=== PATIENT | female | born 1950 | race African-American/Black ===

== ENCOUNTER → 2017-03-18 06:04 | Outpatient (CLI) | payer OTHER, MEDICARE, SELFPAY ==
--- NOTE | 2017-03-18 | NM_ITS ---
CARDIOLITE SPECT MYOCARDIAL PERFUSION SCAN, REST AND STRESS: EXERCISE STRESS [facility] REVIEW QGS EF AND WALL MOTION EVALUATION: QPS - PERFUSION EVALUATION HISTORY: Chest pain DOSE: 10.17 mCi technetium 99m mibi intravenously at rest followed by 31.0 mCi technetium 99m mibi following the intravenous ministration of 0.4 mg of Lexiscan. Resting blood pressure is 152/81. Stress blood pressure 157/76. FINDINGS: Ejection fraction is calculated to be 74%. Stress images reveal decreased activity in the anterior apical wall rest images reveal uniform myocardial IMPRESSION: Anterior ischemia with normal ejection fraction normal wall motion. This is a high risk abnormal stress test
--- NOTE | 2017-03-18 06:57 | HMH.ITSHM ---
Potassium Metformin Diltiazem Hydrochlorothiazide Onqlyza Flucona Levothyroxine Jardiance Zolpidem Sertraline Metoprolol
== END ==
PROVIDERS: Family Provider Family Medicine; PCP Family Medicine; Visit Provider Family Medicine
DX: I20.9 Angina pectoris, unspecified (principal); E11.9 Type 2 diabetes mellitus without complications
CPT/HCPCS: 78452; 93017; A9502; J2785

== ENCOUNTER 2017-03-25 08:20 | Day surgery (SDC) | payer OTHER, MEDICARE, SELFPAY ==
[2017-03-25] VITALS (28 sets, daily range): BP systolic 122–157; BP diastolic 69–88; PULSE 1–102; RESP 16–20; TEMP 36.4–36.6; O2SAT 94–97; BMI 25.4
--- NOTE | 2017-03-25 08:18 | IR_ITS ---
CARDIAC CATHETERIZATION DATE OF CATHETERIZATION:03/25/2017 10:17 AM PROCEDURES: 1. Left heart catheterization 2. Left ventriculogram 3. Selective coronary angiogram INDICATION FOR TEST: 1. Abnormal Myoview 2. Risk factors for coronary artery disease 3. Angina pectoris Informed consent was obtained prior to the procedure. COMPLICATIONS: None ESTIMATED BLOOD LOSS: Less than 10 ml. TECHNIQUE: One percent lidocaine used to anesthetize the right anterior aspect of the wrist. The right radial artery was accessed via the Seldinger technique. A 6 Citizen [place] sheath was placed in the right radial artery. 2.5 mg of verapamil, 800 mcg of nitroglycerin and 5000 U Heparin were given through the arterial sheath. Due to extreme tortuosity at the elbow it was decided to abandon the radial approach therefore one percent lidocaine was used to anesthetize the right groin. The right femoral artery was accessed via a centimeter technique and a 4 [place] sheath was placed in the right femoral artery. A JL 4 JR4 catheter were used to perform left heart catheterization left ventriculogram and selective coronary angiography. At the end of the procedure the patient was transferred to the postop holding area in stable condition for sheath removal ANGIOGRAPHIC RESULTS: 1. The left main artery normal 2. The left anterior descending artery has proximal mild luminal irregularities and mid vessel mild luminal irregularities less than 10% in severity 3. The circumflex artery is dominant with mild luminal irregularities less than 10% 4. The right coronary artery nondominant normal 5. The ANDERSON ventriculogram reveals 65% 6. The left ventricular end-diastolic pressure elevated at 25 mmHg IMPRESSION: 1. Mild nonflow limiting luminal irregularities 2. Normal ejection fraction 3. Moderately elevated LVEDP consistent with hypertensive heart disease PLAN: 1. Treatment of hypertensive heart disease and diastolic dysfunction. 2. Patient would likely benefit from low dose diuretics in order to decrease EDP
--- NOTE | 2017-03-25 08:28 | CA_ITS ---
PROCEDURE: 2-D M-mode and color Doppler study INDICATIONS FOR THE TEST: Chest pain+ COPD Heart Murmur Tobacco SmokingEX Palpitations Fatigue Syncope Edema Hypertension+Diabetes Mellitus+ Rheumatic Fever SOB [place]+Obesity Hyperlipidemia Family History HD+ Additional History Heart cath today PATIENT INFORMATION HEIGHT: 65 WEIGHT: 158 GENDER: Female B/P: 136/69 2-D/M-MODE INTERPRETATION: 2-D MEASUREMENTS OBSERVED VALUES IN CMS Right Ventricular Dimension (RVDd) 2.0 Interventricular Septum (Thickness)(IVsd) 1.1 Left Ventricular Internal Dimensions(LVIDd) 3.0 Left Ventricular Posterior Wall (Thickness)(LVPWd) 1.0 Aortic Root 2.5 Aortic Cusp Separation 1.8 Left Atrial Dimensions (LAD) 3.5 2D 1. Left atrium is normal size, left ventricle is normal size, there is no concentric left ventricular hypertrophy, visually estimated ejection fraction of 55-60% with no obvious regional wall motion abnormality. 2. The right atrium and right ventricle are normal size and contractility. 3. The aortic valve is minimally thickened and fibrosed. 4. The mitral and tricuspid valve are structurally normal. 5. The pulmonic valve is poorly visualized. 6. No significant pericardial effusion noted. DOPPLER INTERROGATION: Doppler interrogation of the aortic, mitral and tricuspid valvular presence of mild mitral and tricuspid regurgitation, tricuspid and jet velocity insufficient for calculation of the right ventricular systolic pressure, grade 1 diastolic dysfunction seen without tissue Doppler evidence of raised left atrial pressure. CONCLUSION: 1. Mildly enlarged left atrium, normal left ventricular size, there is no concentric left ventricular hypertrophy, visually estimated ejection fraction 55-60% with no obvious regional wall motion abnormality, grade 1 diastolic dysfunction seen without tissue Doppler evidence of raised left atrial pressure. 2. Mild mitral and tricuspid regurgitation. 3. No significant pericardial effusion noted.
[2017-03-25 08:49] LABS: Basophils # 0.1 K/mm3 (0-0.2); Basophils % 0.6 % (0.1-2.0); Eosinophils # 0.4 K/mm3 (0.0-0.4); Eosinophils % 3.1 % (0.1-12.0); Hematocrit 44.3 % (37.0-47.0); Hemoglobin 14.4 g/dL (12.2-16.2); Lymphocytes # 3.9 K/mm3 (0.7-4.5); Lymphocytes % 30.7 K/mm3 (10-50); Mean Corpuscular HGB Conc 32.5 g/dL (31.8-35.4); Mean Corpuscular Hemoglobin 29.2 pg (27.0-31.2); Mean Corpuscular Volume 89.9 fl (81-99); Mean Platelet Volume 7.4 fl (7.4-10.4); Monocytes # 0.5 K/mm3 (0.1-1.0); Monocytes % 4.3 % (1.7-9.3); Neutrophils # 7.7 K/mm3 (1.8-7.8); Neutrophils % 61.4 % (37.0-80.0); Platelet Count 244 K/mm3 (142-424); Red Blood Count 4.93 M/mm3 (4.20-5.40); Red Cell Distribution Width 12.9 % (11.5-17.5); White Blood Count 12.6 K/mm3 (4.8-10.8)
[2017-03-25 08:57] LABS: Anion Gap 12.2 mEq/L (5-15); Blood Urea Nitrogen 16 mg/dL (7-18); Carbon Dioxide 28 mmol/L (21.0-32.0); Chloride 103 mmol/L (98-107); Creatinine Clearance Estimated 63 mL/min (0-300); Creatinine,Serum 0.66 mg/dL (0.55-1.02); Estimated Glomerular Filt Rate 90 ml/min (>60); GFR (African American) 108 ML/MIN (>60); Glucose 118 mg/dL (74-106); Potassium 4.2 mmoL/L (3.5-5.1); Sodium 139 mmol/L (136-145)
[2017-03-25 13:45] LABS: CATHL Activated Clotting Time 149 SEC (74-125)
[2017-03-25 13:45] LABS: CATHL Activated Clotting Time 206 SEC (74-125)
== END 2017-03-25 14:39 | disposition home or self-care (01) ==
PROVIDERS: Family Provider Family Medicine; PCP Family Medicine; Visit Provider Internal Medicine
DX: R93.1 Abnormal findings on diagnostic imaging of heart and coronary circulation (principal); I20.9 Angina pectoris, unspecified; I11.0 Hypertensive heart disease with heart failure; I50.30 Unspecified diastolic (congestive) heart failure; Z72.0 Tobacco use; E11.9 Type 2 diabetes mellitus without complications
CPT/HCPCS: 80048; 85025; 85347; 93306; 93458; 99152; C1725; C1769; J1644; J2720; Q9967

== ENCOUNTER 2017-04-01 10:47 | Day surgery (SDC) | payer OTHER, MEDICARE, SELFPAY ==
[2017-04-01] VITALS (7 sets, daily range): BP systolic 121–155; BP diastolic 61–91; PULSE 66–83; RESP 18–20; TEMP 36.8; O2SAT 18–98; BMI 26.2
--- NOTE | 2017-04-01 11:33 | HMH.ANESCL ---
[facility] Anesthesia Checklist - Patient Identification Patient Identification: Arm Band, Verbal (Name & ) - Structural Data Admitted From: Home Planned Operative Procedure/s: egd Consent for Planned Operative Procedure(s) Verified: Yes Verified Documents: Surgical Consent, History and Physical - NPO Status Verified Time NPO: 00:00 - Chart Verification Results Verified: CBC, BMP - Additional verifications Patient : No Anesthesia Reactions: No Hx Blood Transfusions: No Blood Transfusion Reaction: No Cephalosporin Allergy: No Previous Colonoscopy: Yes - Cardiovascular Assessment Heart Sounds: S1 & S2 Pulse Strength: Strong Pulse Rhythm: Regular Peripheral Edema: No - Airway Assessment C-Spine Mobility Assessed: Yes TMJ Mobility Assessed: Yes Dentition: Dentures-good fit - Neurological Assessment Level of Consciousness: Awake, Alert, Appropriate Hx Seizures: No Numbness or tingling in extremities: No - Genitourinary Assessment Voided care transition coordinator to O.R.: Yes - Anesthesia Plan Anesthesia Risk discussed: Yes Anesthesia Plan: Verified ASA Class: III Anesthesia Type: MAC [facility] Anesthesia HX I have reviewed the patient's past medical history: Yes Medical History: Reports:: Diabetes Mellitus Type 2, Gastroesophageal Reflux Disease(GERD), Hypertension Denies:: Internal Pacemaker, Seizures Other Medical History: Reports: Hypothyroidism Laterality Cases: Bilateral: Breast Biopsy Other Surgeries: Yes: Appendectomy, Colon Resection, Hysterectomy-Total, Thyroidectomy, Other. No: Pacemaker Amputation: No Fractures: No *Family Hx:: Cancer, Stroke
[2017-04-01 11:44] LABS: POC Glucose,Bedside 93 mg/dL
--- NOTE | 2017-04-01 12:17 | HMH.PROC ---
[facility] Procedure Note Procedure Note:: Upper Endoscopy Procedure Report: Esophagogastroduodenoscopy with cold biopsies and TTS balloon dilation Endoscopost: Josiah Gilbert II, MD Referring Physician: Manan Todd MD Date of Procedure: April 01, 2017 Equipment: Olympus GIF 180 standard upper endoscope Sedation: MAC sedation Indications: Mrs. Lu is a 66-year-old female with noncardiac chest pain. She did have a cardiac catheterization (Dr. Maurizio Monahan M.D.) recently that showed 10% stenosis/noncritical and her chest pain was deemed to be noncardiac. This will radiate into her arms and jaw. She does have moderate belching and some bloating. Her chest pain can radiate into the back. She did have a partial thyroidectomy previously and reports some globus sensation and dysphagia. She has frequent clearance of the throat. She reports no recent heartburn or reflux but previously was on Nexium. She does have a history of Crohn's disease and had been followed by Dr. Jesenia Lee M.D. and her last colonoscopy was 4 years ago. She does have some alternating constipation with diarrhea. Procedure: Prior to the procedure, a history and physical exam was performed, and patient's medications and allergies were reviewed. The risks, benefits and alternatives of the sedation and procedure were discussed with the patient. All questions were answered and informed consent was obtained. The patient was brought to the procedure room. Patient identification and proposed procedure were verified by the physician and the nurse. The patient was placed in a left lateral decubitus position and the scope was passed under direct vision. Throughout the procedure, the patient's blood pressure, pulse, and oxygen saturations were monitored continuously. The upper GI endoscopy was accomplished without difficulty. The patient tolerated the procedure well. Findings: The scope was passed directly into the upper esophagus and advanced to the third portion of the duodenum. The post bulbar duodenum and duodenal bulb were normal with normal mucosa and conniventes. The scope was withdrawn through a normal duodenal bulb and pylorus into the stomach. There was bile reflux with mild linear reactive gastritis of the antrum and body. The remainder of the antrum, body and fundus of the stomach were grossly normal. Upon retroflexion there was a small 2 cm hiatal hernia. 2 biopsies were taken in the antrum and along the lesser curvature for histology and/or CLOtest. The scope was then withdrawn into the esophagus. There was no evidence of reflux esophagitis. There was a distal ring/Schatzki's ring which was insignificant. There were tertiary contractions and evidence of mild to moderate esophageal dysmotility. The entire esophagus was dilated to 6 Upper Sor[place]/20 mm with a TTS hydrostatic balloon some resistance at the cricopharyngeus (cricopharyngeal/upper esophageal sphincter spasm). The remainder of the esophageal mucosa was normal. Impression: 1. 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 Nonerosive GERD with mild esophageal dysmotility and small sliding hiatal hernia 3. Bile reflux with linear reactive gastritis Plan: I would recommend dietary measures, fiber bowel regimen and promotility therapy. I will discuss the findings with the patient and family. I will follow up the biopsies. I do feel that her chest pain is functional GERD and esophageal dyskinesia/spasm.
--- NOTE | 2017-04-01 12:23 | P.PCN_ITS ---
[facility] Procedure Note Procedure Note:: Upper Endoscopy Procedure Report: Esophagogastroduodenoscopy with cold biopsies and TTS balloon dilation Endoscopost: Josiah Gilbert II, MD Referring Physician: Manan Todd MD Date of Procedure: April 01, 2017 Equipment: Olympus GIF 180 standard upper endoscope Sedation: MAC sedation Indications: Mrs. Lu is a 66-year-old female with noncardiac chest pain. She did have a cardiac catheterization (Dr. Maurizio Monahan M.D.) recently that showed 10% stenosis/noncritical and her chest pain was deemed to be noncardiac. This will radiate into her arms and jaw. She does have moderate belching and some bloating. Her chest pain can radiate into the back. She did have a partial thyroidectomy previously and reports some globus sensation and dysphagia. She has frequent clearance of the throat. She reports no recent heartburn or reflux but previously was on Nexium. She does have a history of Crohn's disease and had been followed by Dr. Jesenia Lee M.D. and her last colonoscopy was 4 years ago. She does have some alternating constipation with diarrhea. Procedure: Prior to the procedure, a history and physical exam was performed, and patient' s medications and allergies were reviewed. The risks, benefits and alternatives of the sedation and procedure were discussed with the patient. All questions were answered and informed consent was obtained. The patient was brought to the procedure room. Patient identification and proposed procedure were verified by the physician and the nurse. The patient was placed in a left lateral decubitus position and the scope was passed under direct vision. Throughout the procedure, the patient's blood pressure, pulse, and oxygen saturations were monitored continuously. The upper GI endoscopy was accomplished without difficulty. The patient tolerated the procedure well. Findings: The scope was passed directly into the upper esophagus and advanced to the third portion of the duodenum. The post bulbar duodenum and duodenal bulb were normal with normal mucosa and conniventes. The scope was withdrawn through a normal duodenal bulb and pylorus into the stomach. There was bile reflux with mild linear reactive gastritis of the antrum and body. The remainder of the antrum, body and fundus of the stomach were grossly normal. Upon retroflexion there was a small 2 cm hiatal hernia. 2 biopsies were taken in the antrum and along the lesser curvature for histology and/or CLOtest. The scope was then withdrawn into the esophagus. There was no evidence of reflux esophagitis. There was a distal ring/Schatzki's ring which was insignificant. There were tertiary contractions and evidence of mild to moderate esophageal dysmotility. The entire esophagus was dilated to 6 [place]/20 mm with a TTS hydrostatic balloon some resistance at the cricopharyngeus (cricopharyngeal/ upper esophageal sphincter spasm). The remainder of the esophageal mucosa was normal. Impression: 1. 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 Nonerosive GERD with mild esophageal dysmotility and small sliding hiatal hernia 3. Bile reflux with linear reactive gastritis Plan: I would recommend dietary measures, fiber bowel regimen and promotility therapy. I will discuss the findings with the patient and family. I will follow up the biopsies. I do feel that her chest pain is functional GERD and esophageal dyskinesia/spasm.
== END 2017-04-01 13:20 | disposition home or self-care (01) ==
LOC: OUTP 10:49
PROVIDERS: Family Provider Family Medicine; PCP Family Medicine; Visit Provider Internal Medicine Gastroenterology
PROC: 0DJ08ZZ Inspection of Upper Intestinal Tract, Via Natural or Artificial Opening Endoscopic (ICD-10-PCS; CPT 43235; principal; 2017-04-01 12:00)
DX: K22.4 Dyskinesia of esophagus (principal); K44.9 Diaphragmatic hernia without obstruction or gangrene; K21.9 Gastro-esophageal reflux disease without esophagitis; K29.70 Gastritis, unspecified, without bleeding
CPT/HCPCS: 43249; 43239; 82962

== ENCOUNTER → 2017-06-18 15:07 | Outpatient (CLI) | payer OTHER, MEDICARE, SELFPAY ==
--- NOTE | 2017-06-18 15:10 | CT_ITS ---
CT lung screening EXAM: CT LUNG LOW DOSE WO CONTRAST COMPARISON: 05/01/2013 HISTORY: 66-year-old the male with 75 pack-year smoking history, asymptomatic ITS.REASON: HX TOBACCO USE ORDERING PHYSICIAN: Carmen Todd MD PATIENT AGE: 66 years TECHNIQUE: The exam was performed on a GE Light Speed [address] scanner using 2.90 mGy CTDI. A low dose helical CT CHEST was performed on a multi-detector scanner. All CT scans at the facility use one or more dose reduction, viz: automated exposure control; ma/kV adjustment per patient size (including targeted exams where dose is matched to indication; i.e. head); or iterative reconstruction technique. The LDCT was performed in a facility that meets the criteria for the screening program. Data regarding this exam was submitted to ACR which is an approved registry. The order for this exam indicates that it came as a result of a lung cancer screening counseling shard decision-making visit that included all the elements required of such a visit including smoking cessation. The radiologist interpreting this exam meets the CMS criteria for the LDCT lung cancer screening program. The exam is reported using the Lung-RADS classification scale and reported to the ACR registry. NOTE: This study was performed for the specific purposes of lung cancer screening and is not an alternative to diagnostic chest CT. RADIATION DOSE: CTDI vol(CT dose Index-volume) = 2.90mG DLP (Dose Length Product) = 92.11 mGcm FINDINGS: 7 x 3 mm nodule is present along the right minor fissure unchanged. Previously noted additional 7 mm nodule in this area is less apparent. Calcified granuloma right lung base posteriorly. Fibrotic changes right lung base posteriorly. 3 mm nodule right middle lobe unchanged. Mildly prominent precarinal lymph node at 2 x 1.2 cm unchanged. Scattered small axillary nodes measuring up to 1.7 x 1 cm on the right slightly more prominent nonspecific. IMPRESSION: 1. Lung RADS Category: 2, benign 2. Other findings: Mild fibrotic change in the lung bases RECOMMENDATIONS: 12 month LDCT follow-up
--- NOTE | 2017-06-18 15:30 | MM_ITS ---
MM Dig screening mamm BI w/CAD CAD Screening COMPARISON: Digital mammograms 04/03/2011 INDICATION: There is no personal or family history of breast cancer. There has been previous biopsies on each breast. TECHNIQUE: Standard CC and MLO images were obtained. R2 CAD reviewed. FINDINGS: Scattered fibroglandular densities are seen in both breasts on a background of fatty breast parenchyma. There are few benign-appearing calcification in each breast. There is no suspicious lesion and there are no suspicious microcalcifications. IMPRESSION: Stable exam no suspicious lesion seen BI-RADS Category: 2 Benign Finding(s) RECOMMENDED FOLLOW-UP: 1YR - 1 YEAR FOLLOW-UP (A letter has been sent to the patient regarding results of the study.)
== END ==
PROVIDERS: Family Provider Family Medicine; PCP Family Medicine; Visit Provider Family Medicine
DX: Z12.31 Encounter for screening mammogram for malignant neoplasm of breast (principal); Z87.891 Personal history of nicotine dependence; Z12.2 Encounter for screening for malignant neoplasm of respiratory organs
CPT/HCPCS: 77067

== ENCOUNTER → 2017-06-24 08:48 | Outpatient (POV) | payer OTHER, MEDICARE, SELFPAY | PROVIDERS: Visit Provider Nurse Practitioner Acute Care | DX: Z00.00 Encounter for general adult medical examination without abnormal findings (principal) ==

== ENCOUNTER → 2017-08-12 17:29 | Outpatient (POV) | payer OTHER, MEDICARE, SELFPAY | PROVIDERS: Family Provider Family Medicine; PCP Family Medicine; Visit Provider Nurse Practitioner Acute Care | DX: Z00.00 Encounter for general adult medical examination without abnormal findings (principal) ==

== ENCOUNTER → 2017-10-22 09:14 | Outpatient (POV) | payer OTHER, MEDICARE, SELFPAY | PROVIDERS: Family Provider Family Medicine; PCP Family Medicine; Visit Provider Otolaryngology | DX: Z00.00 Encounter for general adult medical examination without abnormal findings (principal) ==

== ENCOUNTER → 2019-02-12 10:33 | Outpatient (CLI) | payer OTHER, MEDICARE, SELFPAY ==
--- NOTE | 2019-02-12 10:40 | XR_ITS ---
PROCEDURE: XR ABDOMEN MIN 2V CLINICAL INDICATION: EPIGASTRIC PAIN Epigastric pain COMPARISON: No exams were available for comparison FINDINGS: Nonspecific nonobstructive bowel gas pattern. No intestinal obstruction or free air. There are few air-fluid levels in the right mid abdominal region within nondistended bowel. No free air evident. Prior cholecystectomy. There are some degenerative changes in the lumbar spine. Small calcific density is present over the upper pole of the left kidney suggesting a small renal stone at 3 mm. IMPRESSION: The 1. Nonspecific bowel gas pattern with scattered air-fluid levels on the right with nondistended bowel which could be due to enteritis or ileus. 2. Possible left nephrolithiasis Dictated by: Dirk Rodriguez MD 02/12/2019 16:13 Electronically signed by Dirk Rodriguez MD in [place] 02/12/2019 16:13
== END ==
PROVIDERS: PCP Family Medicine; Visit Provider Physician Assistant
DX: R10.13 Epigastric pain (principal)
CPT/HCPCS: 74019

== ENCOUNTER → 2020-10-25 09:21 | Outpatient (CLI) | payer MEDICARE, SELFPAY ==
--- NOTE | 2020-10-25 09:26 | US_ITS ---
PROCEDURE: US KIDNEY CLINICAL INDICATION: LOW ABD PAIN COMPARISON: No exams were available for comparison FINDINGS: The right kidney is [id number]. No hydronephrosis, cortical thinning, or renal mass or perinephric fluid collection is evident. There is minimal ectasia of the right renal collecting system. The left kidney is [id number]. No hydronephrosis, cortical thinning, or renal mass or perinephric fluid collection is evident. 1 cm cyst is present along the lower pole. IMPRESSION: Minimal ectasia right renal collecting system nonspecific but could be related to recently passed stone. Dictated by: Dirk Rodriguez MD 10/25/2020 15:03 Dirk Rodriguez MD in [facility] 10/25/2020 15:03
--- NOTE | 2020-10-25 09:26 | US_ITS ---
PROCEDURE: US URINARY BLADDER CLINICAL INDICATION: LOW ABD PAIN COMPARISON: No exams were available for comparison FINDINGS: Full bladder volume is calculated at 185 mL. No obvious urinary bladder mass. Bilateral ureteral jets are noted. Post void volume is 23 mL. IMPRESSION: Mild postvoid residual urine Dictated by: Dirk Rodriguez MD 10/25/2020 15:04 Dirk Rodriguez MD in [facility] 10/25/2020 15:04
--- NOTE | 2020-10-25 10:08 | XR_ITS ---
PROCEDURE: XR LUMBAR SPINE MIN 4V CLINICAL INDICATION: LOWER ABD PAIN COMPARISON: CT ABDPELW CT ABD PELVIS WITH CONTRAST from 03/05/2012 FINDINGS: No acute fracture or dislocation is evident. There is 7 mm anterolisthesis of L4 on L5. Degenerative disc disease noted at T11-T12. There is severe facet hypertrophic change at L4-L5 and S1 with osteosclerosis of the facets. There are osteoarthritic changes of the SI joints on both sides inferiorly Other findings:A 3 mm calcific density overlies the upper pole of the left kidney suggesting left nephrolithiasis IMPRESSION: Degenerative changes as described above with facet arthritic/hypertrophic changes at L4-L5 and S1 along with osteoarthritis of the SI joints. Possible left nephrolithiasis. Dictated by: Dirk Rodriguez MD 10/25/2020 14:07 Dirk Rodriguez MD in [facility] 10/25/2020 14:07
== END ==
PROVIDERS: PCP Family Medicine; Visit Provider Family Medicine
DX: R10.30 Lower abdominal pain, unspecified (principal)
CPT/HCPCS: 72110; 76770; 76857

== ENCOUNTER 2020-11-03 12:31 | Emergency (ER) | payer MEDICARE, SELFPAY ==
[2020-11-03] VITALS (10 sets, daily range): BP systolic 122–149; BP diastolic 65–84; PULSE 62–74; RESP 15–18; TEMP 36.8–37.1; O2SAT 95–100; BMI 27.1
--- NOTE | 2020-11-03 12:39 | ECG_ITS ---
APPROVED REPORT Exam: Resting ECG HR:67 bpm ECG Measurements Heart Rate 67 AXES OK 206 P 53 QRSd 76 QRS -18 QT 420 T 40 QTc 443 Conclusion Normal sinus rhythm Low voltage QRS Cannot rule out Anterior infarct, age undetermined Abnormal ECG Electronically signed by : Antoni Olivier MD 11/07/2020 21:05:36
--- NOTE | 2020-11-03 13:01 | CT_ITS ---
PROCEDURE: CT ABDOMEN PELVIS W CON CLINICAL INDICATION: LUQ pain that radiates to her left upper back COMPARISON: CT ABDPELW CT ABD PELVIS WITH CONTRAST from 03/05/2012 TECHNIQUE: IV Contrast: 75ML Isovue 370 Oral Contrast None Axial images obtained with sagittal and coronal reformats. All CT scans at the facility use one or more dose reduction, viz: automated exposure control, ma/kV adjustment per patient size (including targeted exams where dose is matched to indication, i.e. head), or iterative reconstruction technique. FINDINGS: Fatty liver. Prior cholecystectomy. 11 mm left adrenal nodule only slightly more prominent and may be due to an adenoma. Follow-up may confirm stability. Prior cholecystectomy with mild prominence of the cystic duct remnant and mild prominence of the common hepatic duct. No acute renal findings. The spleen, pancreas, have an unremarkable appearance. No evidence of appendicitis or diverticulitis. There are scattered fluid-filled loops of large and small bowel with air-fluid levels. There is eventration of the abdominal wall at the umbilical region with suggestion of a small left para milk a hernia containing a knuckle of small bowel. No evidence of bowel obstruction. Prior hysterectomy. IMPRESSION: Scattered nondistended loops of small and large bowel with air-fluid levels which may be due to enterocolitis or diarrhea disease. Eventration of the abdominal wall at the umbilical area with small left periumbilical hernia containing a knuckle of small bowel without obstruction. Other nonacute findings as described above. Dictated by: Dirk Rodriguez MD 11/03/2020 15:13 Dirk Rodriguez MD in [facility] 11/03/2020 15:13
--- NOTE | 2020-11-03 13:01 | XR_ITS ---
PROCEDURE: XR CHEST 2V CLINICAL HISTORY: left rib pain COMPARISON: CT CHW CT CHEST W/ CONTRAST from 05/01/2013 CR CXR CHEST(2 VIEWS-NOT PORTABLE) from 11/30/2013 CR XR CHEST 2V from 10/29/2018 FINDINGS: The cardiomediastinal silhouette and pulmonary vascularity are within normal limits. The lungs are clear without infiltrates, suspicious nodules, or pleural effusions. No acute bony abnormalities. IMPRESSION: No acute findings. Dictated by: Dirk Rodriguez MD 11/03/2020 14:58 Dirk Rodriguez MD in [facility] 11/03/2020 14:58
--- NOTE | 2020-11-03 13:12 | HMH.EDGENADL ---
ED Disposition Clinical Impression: Left flank pain, Left lower quadrant pain, Pleuritic chest pain Umbilical hernia Qualifiers: Obstruction and gangrene presence: without obstruction or gangrene Qualified Code(s): K42.9 - Umbilical hernia without obstruction or gangrene Disposition: Home, Self-Care Condition on Discharge: Fair Additional Instructions: Call Dr. Todd's office to arrange follow-up appointment. Referrals: Carmen Todd MD [Primary Care Provider] - - Critical Care Critical Care Time: No Attestation: On 11/03/20, the high probability of a clinically significant, sudden or life threatening deterioration of the following system(s) required my full and direct attention, intervention and personal management. The time I documented below is in addition to time spent performing reported procedures but includes the following listed in this critical care notation. Medical Decision Making - Medical Records Medical records reviewed: Yes: I reviewed the patient's medical records. MR Comment: Reviewed results of recent lumbar spine x-ray, renal ultrasound, bladder ultrasound, see below - Carlos Inquiry Pt receiving controlled substance: No Carlos was queried for this patient: Yes Vital Signs: 11/03/20 12:33 11/03/20 12:43 11/03/20 13:01 Temperature 98.7 F Temperature Source Oral Pulse Rate 66 65 Pulse Rate [Right] 67 Respiratory Rate 16 16 15 Blood Pressure 129/73 122/65 Blood Pressure [Right Arm] 129/73 Blood Pressure Mean 90 84 Blood Pressure Mean [Right Arm] 91 02 Sat by Pulse Oximetry 98 99 96 Oxygen Delivery Method Room Air 11/03/20 13:30 11/03/20 14:39 Temperature Temperature Source Pulse Rate 63 69 Pulse Rate [Right] Respiratory Rate 16 15 Blood Pressure 141/76 H 141/71 H Blood Pressure [Right Arm] Blood Pressure Mean 91 88 Blood Pressure Mean [Right Arm] 02 Sat by Pulse Oximetry 100 96 Oxygen Delivery Method - Lab Data Lab Results 11/03/20 13:25: WBC 15.8 H, RBC 4.50, Hgb 13.7, Hct 42.0, MCV 93.5, MCH 30.4, MCHC 32.5, RDW 13.0, Plt Count 344, MPV 8.6, Neut % (Auto) 71.6, Lymph % (Auto) 19.9, [place] % (Auto) 5.5, Eos % (Auto) 2.3, Baso % (Auto) 0.6, Neut # (Auto) 11.3 H, Lymph # (Auto) 3.1, [place] # (Auto) 0.9, Eos # (Auto) 0.4, Baso # (Auto) 0.1, Total Counted 100, Neutrophils % (Manual) 74, Lymphocytes % (Manual) 19, Monocytes % (Manual) 7, Platelet Estimate Normal, RBC Morphology Normal 11/03/20 13:25: Sodium 138, Potassium 4.5, Chloride 103, Carbon Dioxide 25, Anion Gap 14.5, BUN 11, Creatinine 0.70, Estimated Creat Clear 59, Estimated GFR 83, Est GFR ( Amer) 100, Glucose 83, Calcium 10.0, Total Bilirubin 0.4, AST 57 H, ALT 59, Alkaline Phosphatase 157 H, Troponin I < 0.01, Total Protein 8.0, Albumin 4.4, Globulin 3.6 H, Albumin/Globulin Ratio 1.2 11/03/20 13:25: Lipase 48 11/03/20 15:16: Urine Color Yellow, Urine Appearance Clear, Urine pH 6.0, Ur Specific [place] <= 1.005, Urine Protein Negative, Urine Glucose (UA) Negative, Urine Ketones Negative, Urine Blood Negative, Urine Nitrate Negative, Urine Bilirubin Negative, Urine Urobilinogen 0.2, Ur Leukocyte Esterase Negative, Urine Bacteria Trace Result diagrams: 11/03/20 13:25 11/03/20 13:25 Orders (Tests/Meds): ED MEDICATIONS Discontinued Medications Generic Name Dose Route Start Last Admin Trade Name Mertq PRN Reason Stop Dose Admin Iopamidol 75 ml 11/03/20 14:34 11/03/20 14:35 Iopamidol-370 (76%);100ml Bottle IV 11/03/20 14:35 75 ml ONCE ONE Administration Sodium Chloride 10 ml 11/03/20 14:34 11/03/20 14:35 Sodium Chloride 0.9% 10ml Syr (Rad Only) IV 11/03/20 14:35 10 ml ONCE ONE Administration ORDERS Category Date Time Status Troponin I Q3H Lab 11/03/20 16:15 Ordered Troponin I Q3H Lab 11/03/20 19:15 Ordered PROCEDURE: XR LUMBAR SPINE MIN 4V CLINICAL INDICATION: LOWER ABD PAIN COMPARISON: CT ABDPELW CT ABD PELVIS WITH CON
--- NOTE | 2020-11-03 13:18 | CT_ITS ---
PROCEDURE: CT ANGIO CHEST PE PROTOCOL CLINCIAL INDICATION: pleuritic L chest pain COMPARISON: CT CHW CT CHEST W/ CONTRAST from 05/01/2013 TECHNIQUE: IV Contrast: 70ML Isovue 370 Axial images obtained with sagittal and coronal reformats. All CT scans at the facility use one or more dose reduction, viz: automated exposure control, ma/kV adjustment per patient size (including targeted exams where dose is matched to indication, i.e. head), or iterative reconstruction technique. FINDINGS: HEART AND MEDIASTINAL STRUCTURES: No evidence of pulmonary embolus, aortic aneurysm, or aortic dissection. Coronary artery calcifications are noted. LUNGS AND PLEURAL SPACES: Mild fissural thickening in the right minor fissure with minimal nodularity in the right minor fissure consistent with small fissural nodes unchanged. Atelectatic or fibrotic changes in the lung bases. Old granulomatous disease. BONY STRUCTURES: No acute bony abnormalities apparent. UPPER ABDOMEN: 11 mm left adrenal nodule indeterminate ADDITIONAL FINDINGS: No other significant abnormalities. IMPRESSION: No evidence of pulmonary embolus. Bibasilar atelectatic or fibrotic changes. Dictated by: Dirk Rodriguez MD 11/03/2020 15:08 Dirk Rodriguez MD in [facility] 11/03/2020 15:08
--- NOTE | 2020-11-03 13:31 | PC.NURSE ---
Unsuccessful IV attempts 2x. Blood work obtained but unable to maintain IV access
[2020-11-03 13:40] LABS: Basophils # 0.1 K/mm3 (0-0.2); Basophils % 0.6 % (0.1-2.0); Eosinophils # 0.4 K/mm3 (0.0-0.4); Eosinophils % 2.3 % (0.1-12.0); Hemoglobin 13.7 g/dL (12.2-16.2); Lymphocytes # 3.1 K/mm3 (0.7-4.5); Lymphocytes % 19.9 % (10-50); Mean Corpuscular HGB Conc 32.5 g/dL (31.8-35.4); Mean Corpuscular Hemoglobin 30.4 pg (27.0-31.2); Mean Corpuscular Volume 93.5 fl (81-99); Mean Platelet Volume 8.6 fl (7.4-10.4); Monocytes # 0.9 K/mm3 (0.1-1.0); Monocytes % 5.5 % (1.7-9.3); Neutrophils # 11.3 K/mm3 (1.8-7.8); Neutrophils % 71.6 % (37.0-80.0); Platelet Count 344 K/mm3 (142-424); White Blood Count 15.8 K/mm3 (4.8-10.8)
[2020-11-03 13:41] LABS: MANUAL DIFFERENTIAL MANUAL DIFFERENTIAL (MANUAL DIFF)
[2020-11-03 13:43] LABS: Chloride 103 mmol/L (98-107)
[2020-11-03 13:44] LABS: Potassium 4.5 mmoL/L (3.5-5.1); Sodium 138 mmol/L (136-145)
[2020-11-03 13:46] LABS: Alanine Aminotransferase 59 U/L (12-78); Albumin Level 4.4 g/dl (3.5-5.0); Alkaline Phosphatase 157 U/L (38-126); Aspartate Amino Transferase 57 U/L (14-36); Bilirubin,Total 0.4 mg/dl (0.2-1.3); Blood Urea Nitrogen 11 mg/dl (7-17); Creatinine Clearance Estimated 59 mL/min (50-200); Estimated Glomerular Filt Rate 83 ml/min (>60); GFR (African American) 100 ML/MIN (>60)
[2020-11-03 13:47] LABS: Albumin/Globulin Ratio 1.2 (1.1-1.8); Anion Gap 14.5 mEq/L (5-15); Carbon Dioxide 25 mmol/L (22.0-30.0); Globulin 3.6 g/dL (1.3-3.2); Glucose 83 mg/dl (74-100); Lipase 48 U/L (23-300)
[2020-11-03 13:54] LABS: Lymphocytes % 19 % (10-50); Monocytes % 7 % (2-9); Neutrophils % 74 % (42-76); Platelet Estimate Normal; RBC Morphology Normal; Total Cells Counted 100
[2020-11-03 14:00] LABS: Troponin I < 0.01 ng/ml (0.00-0.034)
[2020-11-03 15:21] LABS: Microscopic, Urine URINE MICROSCOPIC (MICROSCOPIC)
[2020-11-03 15:36] LABS: Appearance,Urine CLEAR (Clear); Bilirubin,Urine Negative (Negative); Blood, Urine Negative (Negative); Color,Urine YELLOW (Yellow); Glucose,Urine (UA) Negative (Negative); Ketones,Urine Negative (Negative); Leukocyte Esterase,Urine Negative (Negative); Nitrate,Urine Negative (Negative); Protein,Urine Negative (Negative); Specific Gravity, Urine <= 1.005 (1.005-1.030); Urobilinogen,Urine 0.2 EU/dl (0.2)
[2020-11-03 15:45] LABS: Bacteria,Urine Trace /lpf
[2020-11-03 17:01] LABS: Troponin I < 0.01 ng/ml (0.00-0.034)
== END 2020-11-03 17:10 | disposition home or self-care (01) ==
PROVIDERS: Emergency Provider Emergency Medicine; PCP Family Medicine
DX: K42.9 Umbilical hernia without obstruction or gangrene (principal); R07.81 Pleurodynia; R10.32 Left lower quadrant pain; E11.9 Type 2 diabetes mellitus without complications; K21.9 Gastro-esophageal reflux disease without esophagitis; E78.5 Hyperlipidemia, unspecified; E03.9 Hypothyroidism, unspecified; Z90.49 Acquired absence of other specified parts of digestive tract; Z79.899 Other long term (current) drug therapy
CPT/HCPCS: 71046; 71275; 74177; 80053; 81001; 83690; 84484; 85007; 85025; 93005; 99283; Q9967

== ENCOUNTER → 2020-12-22 14:47 | Outpatient (CLI) | payer MEDICARE, SELFPAY ==
--- NOTE | 2020-12-22 14:50 | MM_ITS ---
PROCEDURE: MM DIG SCREENING MAMM BI W/CAD Digital Breast Tomosynthesis Included CLINICAL INDICATION: SCREENING There is no personal or family history of breast cancer. COMPARISON: MG DIGMAMMS MAMMOGRAM SCREEN-JUMPBASTING CANVAS BASTER N/C from 07/28/2002 MG DMSB DIGITAL MAMM-SCREEN BILATERAL from 04/03/2011 [facility] SCBI MM Dig screening mamm BI w/CAD from 06/18/2017 TECHNIQUE: Standard CC and MLO images and 3D Tomosynthesis was obtained. R2 CAD reviewed. FINDINGS: Mild to moderate scattered fibroglandular densities are seen in both breast primarily upper outer quadrants. CAD markings were reviewed and they appear to be secondary to microcalcifications and or vascular calcifications. Occasions. IMPRESSION: Stable exam with no suspicious lesions seen BI-RAD Category: 2 Benign Finding(s) FOLLOW-UP: 1YR 1 Year Follow-up (A letter has been sent to the patient regarding results of the study.) Dictated by: Dr. Rahul Hector MD 12/28/2020 08:33 Dr. Rahul Hector MD in [facility] 12/28/2020 08:33
--- NOTE | 2020-12-22 14:50 | CT_ITS ---
PROCEDURE: CT LUNG SCREENING CLINICAL INDICATION: H/O NICOTINE DEPENDENCE COMPARISON: CT LUNGSCREEN CT lung screening from 06/18/[address] ANGIO CHEST PE PROTOCOL from 11/03/2020 TECHNIQUE: The exam was performed on a GE Light Speed [address] scanner using 2.90 mGy CTDI. A low dose helical CT CHEST was performed on a multi-detector scanner. All CT scans at the facility use one or more dose reduction, viz: automated exposure control, ma/kV adjustment per patient size (including targeted exams where dose is matched to indication, i.e. head), or iterative reconstruction technique. The LDCT was performed in a facility that meets the criteria for the screening program. Data regarding this exam was submitted to ACR which is an approved registry. The order for this exam indicates that it came as a result of a lung cancer screening counseling shard decision-making visit that included all the elements required of such a visit including smoking cessation. The radiologist interpreting this exam meets the CMS criteria for the LDCT lung cancer screening program. The exam is reported using the Lung-RADS classification scale and reported to the ACR registry. NOTE: This study was performed for the specific purposes of lung cancer screening and is not an alternative to diagnostic chest CT. RADIATION DOSE: CTDI vol(CT dose Index-volume) = 2.90mG DLP (Dose Length Product) = 92.1 mGcm FINDINGS: COPD scattered areas of scarring. Benign-appearing fissural nodule right minor fissure unchanged. Subpleural nodule right lower lobe posteriorly at the CP angle unchanged. 5 mm nodule lingula medially unchanged. 5 mm left CP angle nodule unchanged. No new suspicious nodules evident. Stable 3 mm nodule right upper lobe posteriorly OTHER FINDINGS: No change mildly prominent precarinal and anterior mediastinal lymph nodes. Coronary artery calcifications. Mild prominence of the left adrenal gland unchanged. IMPRESSION: Lung-RADS Category 2 Benign Appearance or Behavior Follow-up: Continue annual screening with LDCT in 12 months Dictated by: Dirk Rodriguez MD 01/08/2021 11:40 Dirk Rodriguez MD in [facility] 01/08/2021 11:40
== END ==
PROVIDERS: PCP Family Medicine; Visit Provider Family Medicine
DX: Z12.31 Encounter for screening mammogram for malignant neoplasm of breast (principal); Z87.891 Personal history of nicotine dependence; Z12.2 Encounter for screening for malignant neoplasm of respiratory organs
CPT/HCPCS: 71271; 77063; 77067

== ENCOUNTER 2021-01-27 17:25 | Emergency (ER) | payer MEDICARE, SELFPAY ==
[2021-01-27 17:25] VITALS: BP 152/80; PULSE 83; RESP 16; TEMP 36.8; O2SAT 96; BMI 22.8
[2021-01-27 17:38] LABS: POC Glucose,Bedside 211 (70-110)
--- NOTE | 2021-01-27 17:39 | PC.NURSE ---
fsbs 211
--- NOTE | 2021-01-27 17:47 | PC.NURSE ---
Blood sent to lab at this time
--- NOTE | 2021-01-27 17:50 | PC.NURSE ---
Pt up to restroom via w/c by Marge Keller
--- NOTE | 2021-01-27 17:56 | PC.NURSE ---
Urine sent to lab
[2021-01-27 17:57] LABS: Appearance,Urine CLEAR (Clear); Bilirubin,Urine Negative (Negative); Blood, Urine Negative (Negative); Color,Urine YELLOW (Yellow); Glucose,Urine (UA) Negative (Negative); Ketones,Urine Negative (Negative); Leukocyte Esterase,Urine Negative (Negative); Microscopic, Urine URINE MICROSCOPIC (MICROSCOPIC); Nitrate,Urine Negative (Negative); PH,Urine 6.5 (5.0-8.5); Protein,Urine Negative (Negative); Specific Gravity, Urine 1.025 (1.005-1.030); Urobilinogen,Urine 0.2 EU/dl (0.2)
[2021-01-27 18:00] VITALS: BP 136/68; PULSE 76; O2SAT 99
[2021-01-27 18:00] LABS: Basophils # 0.1 K/mm3 (0-0.2); Basophils % 0.6 % (0.1-2.0); Eosinophils # 0.4 K/mm3 (0.0-0.4); Eosinophils % 3.4 % (0.1-12.0); Hematocrit 34.7 % (37.0-47.0); Hemoglobin 11.7 g/dL (12.2-16.2); Lymphocytes # 3.9 K/mm3 (0.7-4.5); Lymphocytes % 35.8 % (10-50); Mean Corpuscular HGB Conc 33.7 g/dL (31.8-35.4); Mean Corpuscular Hemoglobin 30.7 pg (27.0-31.2); Mean Corpuscular Volume 91.1 fl (81-99); Mean Platelet Volume 8.3 fl (7.4-10.4); Monocytes # 0.4 K/mm3 (0.1-1.0); Monocytes % 3.7 % (1.7-9.3); Neutrophils % 56.4 % (37.0-80.0); Platelet Count 238 K/mm3 (142-424); Red Blood Count 3.81 M/mm3 (4.20-5.40); Red Cell Distribution Width 13.8 % (11.5-17.5); White Blood Count 10.7 K/mm3 (4.8-10.8)
[2021-01-27 18:10] LABS: Chloride 107 mmol/L (98-107); Potassium 3.8 mmoL/L (3.5-5.1); Sodium 140 mmol/L (136-145)
[2021-01-27 18:13] LABS: Alanine Aminotransferase 16 U/L (12-78); Albumin/Globulin Ratio 1.4 (1.1-1.8); Alkaline Phosphatase 125 U/L (38-126); Amylase 67 U/L (30-110); Anion Gap 10.8 mEq/L (5-15); Aspartate Amino Transferase 28 U/L (14-36); Blood Urea Nitrogen 19 mg/dl (7-17); Calcium 9.6 mg/dl (8.4-10.2); Carbon Dioxide 26 mmol/L (22.0-30.0); Creatinine Clearance Estimated 56 mL/min (50-200); Estimated Glomerular Filt Rate 83 ml/min (>60); GFR (African American) 100 ML/MIN (>60); Globulin 2.8 g/dL (1.3-3.2); Glucose 217 mg/dl (74-100); Lipase 105 U/L (23-300); Total Protein,Serum 6.8 g/dl (6.3-8.2)
[2021-01-27 18:16] LABS: Bilirubin,Total 0.1 mg/dl (0.2-1.3)
--- NOTE | 2021-01-27 19:01 | PC.NURSE ---
Pt is refusing CT. MD will be notified once he comes out of another pt's room.
--- NOTE | 2021-01-27 19:14 | HMH.EDGENADL ---
ED Disposition Clinical Impression: Pre-syncope, Lower abdominal pain Disposition: Home, Self-Care Condition on Discharge: Good Instructions: DI for Acute Abdominal Pain Additional Instructions: Return to the emergency department if symptoms worsen. Call your primary care doctor Saturday to arrange follow-up. Referrals: Carmen Todd MD [Primary Care Provider] - - Critical Care Critical Care Time: No Attestation: On 01/27/21, the high probability of a clinically significant, sudden or life threatening deterioration of the following system(s) required my full and direct attention, intervention and personal management. The time I documented below is in addition to time spent performing reported procedures but includes the following listed in this critical care notation. Medical Decision Making - Carlos Inquiry Pt receiving controlled substance: No Vital Signs: 01/27/21 17:25 01/27/21 18:00 Temperature 98.3 F Temperature Source Oral Pulse Rate 76 Pulse Rate [Right Radial] 83 Respiratory Rate 16 Blood Pressure 136/68 Blood Pressure [Right Arm] 152/80 H Blood Pressure Mean [Right Arm] 104 Blood Pressure Source [Right Arm] Automatic Cuff Blood Pressure Position [Right Arm] Sitting 02 Sat by Pulse Oximetry 96 99 Oxygen Delivery Method Room Air - Lab Data Lab Results 01/27/21 17:31: POC Glucose 211 H 01/27/21 17:49: Urine Color Yellow, Urine Appearance Clear, Urine pH 6.5, Ur Specific [place] 1.025, Urine Protein Negative, Urine Glucose (UA) Negative, Urine Ketones Negative, Urine Blood Negative, Urine Nitrate Negative, Urine Bilirubin Negative, Urine Urobilinogen 0.2, Ur Leukocyte Esterase Negative, Urine RBC None, Urine WBC None, Ur Squamous Epith Cells 3-5, Urine Bacteria None 01/27/21 17:49: WBC 10.7, RBC 3.81 L, Hgb 11.7 L, Hct 34.7 L, MCV 91.1, MCH 30.7, MCHC 33.7, RDW 13.8, Plt Count 238, MPV 8.3, Neut % (Auto) 56.4, Lymph % (Auto) 35.8, [place] % (Auto) 3.7, Eos % (Auto) 3.4, Baso % (Auto) 0.6, Neut # (Auto) 6.0, Lymph # (Auto) 3.9, [place] # (Auto) 0.4, Eos # (Auto) 0.4, Baso # (Auto) 0.1 01/27/21 17:49: Sodium 140, Potassium 3.8, Chloride 107, Carbon Dioxide 26, Anion Gap 10.8, BUN 19 H, Creatinine 0.70, Estimated Creat Clear 56, Estimated GFR 83, Est GFR ( Amer) 100, Glucose 217 H, Calcium 9.6, Total Bilirubin 0.1 L, AST 28, ALT 16, Alkaline Phosphatase 125, Total Protein 6.8, Albumin 4.0, Globulin 2.8, Albumin/Globulin Ratio 1.4, Amylase 67, Lipase 105 Result diagrams: 01/27/21 17:49 01/27/21 17:49 Orders (Tests/Meds): ORDERS Category Date Time Status CT abdomen pelvis w con Stat Cat Scan 01/27/21 17:48 Ordered General Adult HPI - General Chief complaint: Abdominal Pain Stated complaint: abd pain Time Seen by Provider: 01/27/21 19:14 Mode of Arrival: EMS Limitations: No Limitations Description of Symptoms (Recalled from ER Triage Doc. by RN): Pt c/o lower abd pain that she advises began this afternoon. Pt states that prior to calling EMS she had went to the bathroom to urinate and when she returned to her din she become dizzy and felt as if she was going to pass out. Pt c/o nausea at this time. - History of Present Illness HPI narrative: Patient states that she went to the bathroom to urinate and then developed some crampy lower abdominal pain and nausea. When she stood up to walk to another room she felt like she was going to pass out. She now feels back to normal. She did not have complete syncope. She never had chest pain or shortness of breath or headache. Her abdomen feels fine now. No abdominal pain. No numbness or weakness of the extremities. She says that now she wants to be discharged, she has a disabled son at home. She does not want any further work-up done. Nurse had ordered a CT scan of her abdomen in triage and she has refused. She says she thinks it might be because her blood sugar is high. She says her blood sugar normally does not run
[2021-01-27 19:21] VITALS: BP 136/68; PULSE 76; RESP 16; TEMP 36.8; O2SAT 99
== END 2021-01-27 19:24 | disposition home or self-care (01) ==
PROVIDERS: Emergency Provider Emergency Medicine; PCP Family Medicine
DX: R55 Syncope and collapse (principal); R10.30 Lower abdominal pain, unspecified; E11.9 Type 2 diabetes mellitus without complications; K21.9 Gastro-esophageal reflux disease without esophagitis; E78.5 Hyperlipidemia, unspecified; E03.9 Hypothyroidism, unspecified; I10 Essential (primary) hypertension; Z87.891 Personal history of nicotine dependence
CPT/HCPCS: 80053; 81001; 82150; 82962; 83690; 85025; 99282

== ENCOUNTER → 2021-03-17 10:36 | Outpatient (CLI) | payer MEDICARE, SELFPAY ==
[2021-03-17 11:17] LABS: Basophils # 0.1 K/mm3 (0-0.2); Basophils % 1.1 % (0.1-2.0); Eosinophils # 0.3 K/mm3 (0.0-0.4); Eosinophils % 2.3 % (0.1-12.0); Hematocrit 41.9 % (37.0-47.0); Hemoglobin 13.3 g/dL (12.2-16.2); Lymphocytes # 3.1 K/mm3 (0.7-4.5); Lymphocytes % 28.9 % (10-50); Mean Corpuscular HGB Conc 31.8 g/dL (31.8-35.4); Mean Corpuscular Hemoglobin 29.8 pg (27.0-31.2); Mean Corpuscular Volume 93.6 fl (81-99); Mean Platelet Volume 7.6 fl (7.4-10.4); Monocytes # 0.6 K/mm3 (0.1-1.0); Monocytes % 5.3 % (1.7-9.3); Neutrophils # 6.7 K/mm3 (1.8-7.8); Neutrophils % 62.5 % (37.0-80.0); Platelet Count 332 K/mm3 (142-424); Red Blood Count 4.48 M/mm3 (4.20-5.40); Red Cell Distribution Width 13.8 % (11.5-17.5); White Blood Count 10.8 K/mm3 (4.8-10.8)
[2021-03-17 13:21] LABS: Free T4 (Free Thyroxine) 0.97 ng/dl (0.78-2.19)
[2021-03-17 13:26] LABS: Alanine Aminotransferase 17 U/L (12-78); Albumin Level 4.5 g/dl (3.5-5.0); Albumin/Globulin Ratio 1.7 (1.1-1.8); Alkaline Phosphatase 105 U/L (38-126); Aspartate Amino Transferase 23 U/L (14-36); Bilirubin,Total 0.3 mg/dl (0.2-1.3); Blood Urea Nitrogen 26 mg/dl (7-17); Calcium 10.2 mg/dl (8.4-10.2); Carbon Dioxide 30 mmol/L (22.0-30.0); Chloride 101 mmol/L (98-107); Estimated Glomerular Filt Rate 62 ml/min (>60); GFR (African American) 75 ML/MIN (>60); Globulin 2.7 g/dL (1.3-3.2); Glucose 152 mg/dl (74-100); Sodium 138 mmol/L (136-145); Total Protein,Serum 7.2 g/dl (6.3-8.2)
[2021-03-17 13:55] LABS: Thyroid Stimulating Hormone 1.71 uIU/mL (0.465-4.68)
[2021-03-17 14:13] LABS: Vitamin B12 432 pg/mL (239-931)
[2021-03-17 16:07] LABS: Hemoglobin A1C 6.8 % (4.0-6.0)
== END ==
PROVIDERS: PCP Family Medicine; Visit Provider Physician Assistant
DX: R55 Syncope and collapse (principal); E11.9 Type 2 diabetes mellitus without complications; Z79.84 Long term (current) use of oral hypoglycemic drugs
CPT/HCPCS: 36415; 80053; 82607; 83036; 84439; 84443; 85025; 93225; 93226

== ENCOUNTER → 2021-03-22 13:01 | Outpatient (CLI) | payer MEDICARE, SELFPAY ==
--- NOTE | 2021-03-22 | CA_ITS ---
APPROVED REPORT EXAM: Comprehensive 2D, Doppler, and color-flow Echocardiogram Tissue Packer: Fern Corbin CRT Ht: 5 ft 6 in Wt: 146lbs BSA: 1.75 BP: 110/70 mmHg Indications: Diabetes, Syncope, Hyperlipidemia, Hypertension/HDD 2D Dimensions LVOT 1.51 cm (M/F) 1.5-2.5 LA Volume 26.70 mL LA Volume Index 15.30 mL/m2 (M/F) 16-34 M-Mode Dimensions RVDd 2.83 cm (0.9-2.6) LA Diam 3.43 cm (1.9-4.0) LVDd 2.92 cm (3.5-5.7) Ao Diam 3.28 cm (2.0-3.7) LVDs 1.76 cm (3.5-5.7) IVSd 1.65 cm (0.6-1.1) PWd 0.93 cm (0.6-1.1) EF (Teich) 72.00% FS 39.70% EDV (Teich) 32.80 mL TAPSE 1.54 (<1.7) ESV (Teich) 9.20 mL LV Diastology E Decel Time 147.00 (160-240 msec) E/A Ratio 0.59 MED E' 7.10 (< 7 cm/sec) MED A' 10.20 cm/s E'/MED E' Ratio 10.45 (>14) LAT E' 8.00 (<10 cm/sec) LAT A' 11.80 cm/s E/LAT E' Ratio 9.28 (>14) Aortic Valve AO Peak GR. 7.50 mmHg Mitral Valve MV E Max Derrek. 74.00 (40-130 cm/s) MV A Velocity 125.00 (40-130 cm/s) E/A Ratio 0.59 MV Decel. Time 147.00 (160-240 ms) MV PHT 43.00 ms Pulmonary Valve PV Peak Velocity 119.00 (50-150 cm/s) Tricuspid Valve TR P. Velocity 243.00 cm/s RAP Estimate 10.00 mmHg RVSP 33.60 mmHg Left Ventricle Left atrium is mildly enlarged, left ventricle is normal size, mild concentric left ventricular hypertrophy, visually estimated ejection fraction 55% with no regional wall motion abnormality, grade 1 diastolic dysfunction seen without tissue Doppler evidence of raise left atrial pressure. Right Ventricle Right atrium and right ventricle are normal size and contractility. Aortic Valve Aortic valve is minimally thickened and calcified without aortic stenosis or aortic insufficiency. Mitral Valve Mitral valve is grossly normal, there is trace mitral regurgitation. Tricuspid Valve Tricuspid valve grossly normal, there is trace tricuspid regurgitation, tricuspid regurgitation jet velocity is inadequate for calculation of the right ventricular systolic pressure. Pulmonic Valve Pulmonic valve is poorly visualized. Great Vessels Aortic root is normal size. Inferior vena cava is poorly visualized. Pericardium No significant pericardial effusion noted. Conclusion 1. Mildly enlarged left atrium, normal left ventricular size, mild concentric left ventricular hypertrophy, visually estimated ejection fraction 55% with no obvious regional wall motion abnormality, grade 1 diastolic dysfunction seen without tissue Doppler evidence of raise left atrial pressure. 2. Thickened and calcified aortic valve without aortic stenosis or aortic insufficiency. 3. Trace mitral and tricuspid regurgitation. 4. No significant pericardial effusion noted. Electronically signed by : Yannick Dow MD 03/22/2021 19:48:51
--- NOTE | 2021-03-22 | CA_ITS ---
FINAL REPORT TECHNIQUE: Color Doppler, duplex Doppler and harrell scale sonography of the bilateral neck arterial vasculature was performed. Velocities were measured in the carotid arteries. Stenosis evaluation based on the validated velocity criteria. CLINICAL HISTORY: syncopal episode with dysphasia FINDINGS: The peak systolic velocity of the right common carotid artery is 81 cm/s. The peak systolic velocity of the right internal carotid artery is 57 cm/s and end diastolic velocity 20 cm/s. The ICA/CCA ratio is 0.74. A mild to moderate amount of plaque is present. The right external carotid artery is patent. The right vertebral artery is patent with antegrade flow. The peak systolic velocity of the left common carotid artery is 110 cm/s. The peak systolic velocity of the left internal carotid artery is 73 cm/s and end diastolic velocity 24 cm/s. The ICA/CCA ratio is 0.66. A mild to moderate amount of plaque is present. The left external carotid artery is patent.The left vertebral artery is patent with antegrade flow. IMPRESSION: Less than 50% bilateral carotid stenoses. Bilateral patent vertebral arteries with antegrade flow. Reviewed, Interpreted and Dictated by Yusuf Reyes III, MD Transcribed by Aliyah Mahmood Authenticated by Yusuf Reyes III, MD on 03/22/2021 03:59:41 PM [facility]
== END ==
PROVIDERS: PCP Family Medicine; Visit Provider Physician Assistant
DX: R55 Syncope and collapse (principal)
CPT/HCPCS: 93306; 93880

== ENCOUNTER → 2021-08-22 13:07 | Outpatient (CLI) | payer MEDICARE, SELFPAY | PROVIDERS: PCP Family Medicine; Visit Provider Family Medicine | DX: R55 Syncope and collapse (principal) | CPT/HCPCS: 93225; 93226 ==

== ENCOUNTER → 2021-09-20 09:44 | Day surgery (SDC) | payer MEDICARE, SELFPAY ==
[2021-09-20 09:57] VITALS: BMI 23.8
[2021-09-20 10:16] LABS: POC Glucose,Bedside 119 (70-110)
--- NOTE | 2021-09-20 12:39 | P.PCN_ITS ---
Findings:: PROCEDURE: Upright Tilt Table Test REQUESTING PHYSICIAN: Nafisa Mooney MD INDICATION: Sporadic but recurrent episodes of syncope or near syncope BETA BLOCKERS: Metoprolol Succinate last taken at 6 am yesterday (~ 17 hours prior to TTT) PRE-TEST VITAL SIGNS (supine): HR 62 and NSR, BP 144/76, O2Sats 98% on room air PROCEDURE SUMMARY: Patient was prepped per protocol, test explained, IV started, heart, blood pressure and oxygen saturation monitors attached. Safety straps applied. She was then tilted upright at 70 degrees for a total of 30 minutes. The patient had no loss of consciousness and denied any symptoms of near syncope, lightheadedness or dizziness. She did note some brief blurry vision after opening her eyes late into the test. But, she denied any of the prodromal symptoms she's had prior to her episodes of syncope/near syncope. Her blood pressure gradually but very significantly decreased during the time she was upright. Initial BP in the upright position was 143/76 (highest), after 3 minutes it was 130/76, after 8 minutes 137/82, after 13 minutes 131/75, after 18 minutes 128/75, after 23 minutes 104/67 (lowest BP) and after 28 minutes her BP was 105/ 68. Her heart rate gradually increased during the time she was upright, going from an initial HR of 65 bpm (lowest) to 98 bpm (highest) after 28 minutes. Rhythm was normal sinus throughout. Oxygen saturation was in the mid to upper 90s throughout. COMPLICATIONS: None CONCLUSIONS: Gradual but marked drop in blood pressure while in the upright p osition suggesting delayed orthostatic hypotension but with no significant corresponding symptoms. The patient specifically denied any symptoms of near/pre-syncope or any of the prodromal symptoms she's had in the past with her syncopal episodes.
== END ==
PROVIDERS: PCP Family Medicine; Visit Provider Specialist
DX: R55 Syncope and collapse (principal)
CPT/HCPCS: 82962; 93660

== ENCOUNTER → 2021-09-22 12:00 | Outpatient (CLI) | payer MEDICARE, SELFPAY | PROVIDERS: PCP Family Medicine; Visit Provider Specialist | DX: G47.33 Obstructive sleep apnea (adult) (pediatric) (principal); R06.83 Snoring | CPT/HCPCS: G0399 ==

== ENCOUNTER → 2021-09-25 09:39 | Outpatient (CLI) | payer MEDICARE, SELFPAY | PROVIDERS: PCP Family Medicine; Visit Provider Specialist | DX: I11.9 Hypertensive heart disease without heart failure; I25.118 Atherosclerotic heart disease of native coronary artery with other forms of angina pectoris; R55 Syncope and collapse | CPT/HCPCS: 93270 ==

== ENCOUNTER → 2021-10-03 11:09 | Outpatient (CLI) | payer MEDICARE, SELFPAY ==
--- NOTE | 2021-10-03 11:10 | MR_ITS ---
FINAL REPORT CLINICAL HISTORY: TIA/CVA pt stated she passes out randomly when she gets hot no injury /trauma FINDINGS: Multiplanar MR imaging of the brain was performed without contrast. There are multiple foci of increased T2 signal in the cerebral white matter consistent with moderate chronic ischemic/gliotic change. There are chronic ischemic changes in the jones. There is no evidence of intracranial hemorrhage or mass. The ventricular size is normal. There is no evidence of shift of the midline structures. No abnormal extra-axial fluid collection is identified. No area of abnormal restricted diffusion is identified. Normal major vessel vascular flow voids are seen. IMPRESSION: Moderate chronic ischemic/gliotic change. Chronic ischemic change in the jones. No acute intracranial abnormality. Reviewed, Interpreted and Dictated by Yusuf Reyes III, MD Transcribed by Richard Newton Authenticated and . [facility]
== END ==
PROVIDERS: PCP Family Medicine; Visit Provider Specialist
DX: Z86.73 Personal history of transient ischemic attack (TIA), and cerebral infarction without residual deficits (principal)
CPT/HCPCS: 70551

== ENCOUNTER → 2021-11-27 12:05 | Outpatient (CLI) | payer MEDICARE, SELFPAY ==
--- NOTE | 2021-11-27 | CA_ITS ---
APPROVED REPORT Exam: Pharmacologic Technologist: Linda Ambrocio, Ht: 5 ft 6 in Wt: 149 lbs BSA: 1.76 m2 HR: 61 bpm BP: 139/71 mmHg Rhythm: NSR Medical History Medical History: Diabetes, HTN, Smoking Medications: Omeprazole,,,,, Metoprolol,,,,, Synthroid,,,,, Klor-con,,,,, MeLOXICAM,,,,, Vit D3,,,,, Zolpidem,,,,, DulOXETINE,,,,, GlimepERIDE,,,,, TriaMterene HCTZ,,,,, DilTAiazem,,,,, Cardiac Risk Factors: HTN, Diabetes (insulin), Smoking Stress Test Details Test: LEXISCAN HR Resting HR: 65 bpm Max Heart Rate (APMHR): 149.335295 bpm Max HR Achieved: 95 bpm Target HR (85% APMHR): 126.538055 bpm % of APMHR: 63.76 Recovery HR: 81 bpm BP Resting BP: 139/71 mmHg Max BP: 146/69 mmHg Recovery BP: 146.0/69.0 mmHg ECG Resting ECG: NSR Clinical Reason for Termination: Completed Protocol Exercise duration: 04:00 min Highest Stage Achieved: Exercise capacity: 1.0 METs Stress ECG Conclusion During lexiscan pt experinced no CP. No arrhythmias noted. <1.5mm ST segment changes. Non diagnostic. Test Summary REST . . . . . . . Sitting REST . . . . . . . Sitting REST 05:13 . . 65 . 139/ 71 . . Stage 1 01:00 . . 91 . . . . Stage 2 01:00 . . 91 . 135/ 68 . . Stage 3 01:00 . . 89 . 141/ 65 . . Stage 4 01:00 . . 82 . 134/ 63 . Stop exercise at 04:00 RECOVERY 01:00 . . 85 . . . . RECOVERY 02:00 . . 81 . . . . RECOVERY 03:00 . . 82 . 146/ 69 . . RECOVERY 04:00 . . 78 . 142/ 67 . . RECOVERY 04:58 . . 0 . 142/ 67 . . Electronically signed by : Yannick Dow MD 11/27/2021 14:06:43
--- NOTE | 2021-11-27 12:11 | NM_ITS ---
APPROVED REPORT Exam: Nuclear Stress Test Indication: Syncope, HTN, DM, High cholesterol, Tobacco use Patient Location: Outpatient Stress Tech: Linda PERRY Tech:Tarsha Robbins, ARRT, RT (R)(N) Ht: 5 ft 6 in Wt: 150 lbs Bra Size: 38C HR: 65 bpm BP: 139/71 mmHg BSA: 1.77 m2 TID: 1.36 BMI: 24.2 History: Syncope, HTN, DM, High cholesterol, Tobacco use Procedure: Patient received a 0.4 mg of intravenous Lexiscan, resting heart rate 65 bpm, resting blood pressure 139/71 mmHg, with Lexiscan maximum heart rate achived was 95 bpm which is Less than 85 % of the maximum predicted heart rate and blood pressure was 146/69 mmHg. With Lexiscan, patient denied any complaint of chest pain. Electrocardiogram Resting electrocardiogram shows sinus rhythm, with Lexiscan there is less than 1.[address] segment depression noted from the baseline EKG. The EKG portion of the Lexiscan is nondiagnostic. Cardiac Stress and Resting SPECT Images: Cardiac Stress and Resting SPECT images were obtained using technetium 99m Myoview 32.7 mCi stress and 10.02 mCi at rest. Gated SPECT for analysis of segmental wall motion and calculation of the ejection fraction also done. Cardiac stress and rest SPECT images show reversible ischemia involving the anterior wall, there is transient ischemic dilatation of the left ventricle also seen. Computer derived ejection fraction is 67% with no regional wall motion abnormality, right ventricle is mildly enlarged with normal contractility. Conclusion: 1. The EKG portion of the Lexiscan is nondiagnostic. 2. Scintigraphic evidence of reversible ischemia involving the anterior wall, there is transient ischemic dilatation of the left ventricle seen, computer derived ejection fraction is 67% with no regional wall motion abnormality, right ventricle is mildly enlarged with normal contractility. 3. Abnormal Lexiscan Myoview study. Electronically signed by : Yannick Dow MD 11/27/2021 17:20:01
--- NOTE | 2021-11-27 13:26 | HMH.ITSHM ---
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 []ZOLPIDEM VITAMIN B HCTZ POTASSIUM OMEPRAZOLE METOPROLOL METFORMIN MELOXICAM LEVOTHYROXINE GLIMEPIRIDE DULOXETINE DILTIAZEM VITAMIN D3
== END ==
PROVIDERS: PCP Family Medicine; Visit Provider Nurse Practitioner Family
DX: R55 Syncope and collapse; I25.118 Atherosclerotic heart disease of native coronary artery with other forms of angina pectoris; I11.9 Hypertensive heart disease without heart failure; E11.9 Type 2 diabetes mellitus without complications; R94.31 Abnormal electrocardiogram [ECG] [EKG]; Z79.84 Long term (current) use of oral hypoglycemic drugs
CPT/HCPCS: 78452; 93017; A9502; J2785

== ENCOUNTER → 2021-12-11 09:46 | Outpatient (CLI) | payer MEDICARE, SELFPAY | PROVIDERS: PCP Family Medicine; Visit Provider Nurse Practitioner Family | DX: R06.00 Dyspnea, unspecified (principal) ==

== ENCOUNTER 2021-12-12 10:35 | Day surgery (SDC) | payer MEDICARE, SELFPAY ==
[2021-12-12] VITALS (10 sets, daily range): BP systolic 142–185; BP diastolic 70–100; PULSE 58–80; RESP 16–18; TEMP 36.8; O2SAT 95–100; BMI 24.2
--- NOTE | 2021-12-12 07:08 | IR_ITS ---
APPROVED REPORT Patient Location: Outpatient Chef Broiler Or Fry: HAZEL Cunningham RT (R) PROCEDURES Left heart catheterization Left ventriculogram Selective coronary angiogram FFR to the LAD INDICATION Angina pectoris, High risk abnormal Myoview anterior ischemia, Angiographic ambiguity in the proximal LAD Informed consent was obtained prior to the procedure. COMPLICATIONS None Estimated Blood Loss: Less than 10 mls TECHNIQUE One percent lidocaine was used to anesthetize the right groin. The right femoral artery was accessed via the Seldinger technique. A 4-Lebanese sheath was placed in the right femoral artery. The JL-4 and JR-4 catheter was also used to perform left heart catheterization left ventriculogram and selective coronary angiogram. At the end the diagnostic angiogram therapeutic heparin was administered giving a therapeutic ACT and the 4 Lebanese sheath was exchanged for a 6 Lebanese sheath. A JR4 guide catheter was placed in the ascending aorta and a Choice PT extra-support wire was used to traverse the stenosis in the LAD. A nevus FFR catheter was then equalized in the left main artery and the catheter was advanced to the mid LAD. Adenosine was infused per protocol and the FFR index dropped to 0.85. Following the diagnostic test the apparatus was removed the groin is reprepped closure change sheath was removed good hemostasis was achieved using Perclose device patient was transferred to the postop putting in stable condition ANGIOGRAPHIC RESULTS The left main artery Has an ostial smooth 20% stenosis The left anterior descending artery Has a proximal hazy 30 to 40% stenosis with wide patency distally The circumflex artery Large dominant mild 10% luminal irregularities The right coronary artery Nondominant normal The ANDERSON ventriculogram reveals Normal 65% The left ventricular end-diastolic pressure 10 mmHg IMPRESSION Mild ostial left main disease Hazy 30 to 40% stenosis in the proximal LAD which produced an FFR index of 0.85 which is not hemodynamically significant and should be treated medically Normal ejection fraction Normal left ventricular end-diastolic pressure PLAN 1. Standard therapy for coronary disease and ischemic heart disease 2. Risk factor modification Electronically signed by : Maurizio Monahan MD 12/12/2021 13:01:45
[2021-12-12 10:53] LABS: Basophils # 0.2 K/mm3 (0-0.2); Basophils % 1.6 % (0.1-2.0); Eosinophils # 0.5 K/mm3 (0.0-0.4); Eosinophils % 3.9 % (0.1-12.0); Hematocrit 42.4 % (37.0-47.0); Hemoglobin 13.7 g/dL (12.2-16.2); Lymphocytes % 34.4 % (10-50); Mean Corpuscular HGB Conc 32.2 g/dL (31.8-35.4); Mean Corpuscular Hemoglobin 30.8 pg (27.0-31.2); Mean Corpuscular Volume 95.4 fl (81-99); Mean Platelet Volume 7.8 fl (7.4-10.4); Monocytes # 0.5 K/mm3 (0.1-1.0); Monocytes % 4.7 % (1.7-9.3); Neutrophils # 6.5 K/mm3 (1.8-7.8); Neutrophils % 55.4 % (37.0-80.0); Platelet Count 329 K/mm3 (142-424); Red Blood Count 4.44 M/mm3 (4.20-5.40); Red Cell Distribution Width 13.6 % (11.5-17.5); White Blood Count 11.6 K/mm3 (4.8-10.8)
[2021-12-12 10:58] LABS: Chloride 105 mmol/L (98-107); Potassium 4.5 mmoL/L (3.5-5.1); Sodium 141 mmol/L (136-145)
[2021-12-12 11:01] LABS: Blood Urea Nitrogen 18 mg/dl (7-17); Creatinine Clearance Estimated 55 mL/min (50-200); Estimated Glomerular Filt Rate 62 ml/min (>60); GFR (African American) 75 ML/MIN (>60)
[2021-12-12 11:02] LABS: Anion Gap 9.5 mEq/L (5-15); Calcium 9.6 mg/dl (8.4-10.2); Carbon Dioxide 31 mmol/L (22.0-30.0); Glucose 107 mg/dl (74-100)
[2021-12-12 14:28] LABS: CATHL Activated Clotting Time 298 SEC (74-125)
== END 2021-12-12 15:15 | disposition home or self-care (01) ==
PROVIDERS: Nurse Practitioner Family; PCP Family Medicine; Visit Provider Internal Medicine
DX: E11.8 Type 2 diabetes mellitus with unspecified complications (principal); G47.33 Obstructive sleep apnea (adult) (pediatric); I11.9 Hypertensive heart disease without heart failure; I25.118 Atherosclerotic heart disease of native coronary artery with other forms of angina pectoris; R94.30 Abnormal result of cardiovascular function study, unspecified; R94.31 Abnormal electrocardiogram [ECG] [EKG]; F17.210 Nicotine dependence, cigarettes, uncomplicated; Z79.899 Other long term (current) drug therapy; Z79.84 Long term (current) use of oral hypoglycemic drugs; E03.9 Hypothyroidism, unspecified; R07.9 Chest pain, unspecified
CPT/HCPCS: 36415; 80048; 85025; 85347; 93458; 93571; 99152; 99153; C1725; C1760; C1769; J0153; J1644; Q9967

== ENCOUNTER → 2021-12-21 09:21 | Outpatient (CLI) | payer MEDICARE, SELFPAY ==
[2021-12-21 10:45] LABS: Alanine Aminotransferase 16 U/L (12-78); Albumin Level 4.3 g/dl (3.5-5.0); Alkaline Phosphatase 104 U/L (38-126); Aspartate Amino Transferase 26 U/L (14-36); Bilirubin,Direct 0.1 mg/dl (0.0-0.4); Bilirubin,Indirect 0.1 mg/dL (0.0-0.9); Bilirubin,Total 0.2 mg/dl (0.2-1.3); Bilirubin,Unconjugated 0.1 mg/dL (0.0-1.1); Chol/HDL Ratio 4.9 (1-3.5); Cholesterol 277 mg/dl (140-200); HDL Cholesterol 57 mg/dl (40-60); Triglycerides 122 mg/dl (30-150); VLDL Cholesterol 24 mg/dL (0-40)
[2021-12-21 10:56] LABS: Direct LDL Cholesterol 172.21 mg/dL (100-129)
== END ==
PROVIDERS: PCP Family Medicine; Visit Provider Nurse Practitioner
DX: E11.9 Type 2 diabetes mellitus without complications (principal); I11.9 Hypertensive heart disease without heart failure; Z79.84 Long term (current) use of oral hypoglycemic drugs
CPT/HCPCS: 36415; 80061; 80076

== ENCOUNTER → 2022-01-08 14:55 | Outpatient (CLI) | payer MEDICARE, SELFPAY ==
[2022-01-08 15:29] LABS: Adenovirus,PCR Not Detected (NotDetected); Bordetella Pertussis Not Detected (NotDetected); Chlamydophila Pneumoniae, PCR Not Detected (NotDetected); Coronavirus 19, PCR Not Detected (NotDetected); Coronavirus 229E Not Detected (NotDetected); Coronavirus NL63 Not Detected (NotDetected); Coronavirus OC43 Not Detected (NotDetected); Coronovirus HKU1,PCR Not Detected (NotDetected); Human Metapneumovirus Not Detected (NotDetected); Influenza A, PCR Not Detected (NotDetected); Influenza AH1, 2009 Not Detected (NotDetected); Influenza AH1, PCR Not Detected (NotDetected); Influenza AH3,PCR Not Detected (NotDetected); Influenza B, PCR Not Detected (NotDetected); Mycoplasma Pneumoniae, PCR Not Detected (NotDetected); Parainfluenza 1, PCR Not Detected (NotDetected); Parainfluenza 2, PCR Not Detected (NotDetected); Parainfluenza 3, PCR Not Detected (NotDetected); Parainfluenza 4, PCR Not Detected (NotDetected)
[2022-01-08 22:49] LABS: Respiratory Syncytial Virus Detected (NotDetected); Rhinovirus/Enterovirus Detected (NotDetected)
== END ==
PROVIDERS: PCP Family Medicine; Visit Provider Family Medicine
DX: J21.0 Acute bronchiolitis due to respiratory syncytial virus (principal); B34.1 Enterovirus infection, unspecified; Z20.822 Contact with and (suspected) exposure to COVID-19
CPT/HCPCS: 87581; 87632; 87798; C9803; U0003; U0005

== ENCOUNTER 2022-02-28 16:01 | Emergency (ER) | payer MEDICARE, SELFPAY ==
[2022-02-28 16:40] VITALS: BP 132/73; PULSE 114; RESP 17; TEMP 37.1; O2SAT 99; BMI 24.7
--- NOTE | 2022-02-28 17:07 | EXP.UTC ---
Discharge Plan Disposition Patient Disposition: Home, Self-Care Condition: Good Prescriptions Prescriptions: No Action triamterene-hydrochlorothiazid 37.5-25 mg tablet 1 tab PO DAILY glimepiride 2 mg tablet 2 mg PO DAILY meloxicam 15 mg tablet 15 mg PO DAILY duloxetine 30 mg capsule,delayed release(DR/EC) 60 mg PO DAILY metoprolol succinate 25 mg tablet extended release 24 hr 25 mg PO QDAY levothyroxine [Synthroid] 88 mcg tablet 88 mcg PO QDAY potassium chloride [Klor-Con] 20 mEq packet 40 meq PO BID diltiazem HCl 240 mg capsule,extended release 24hr 240 mg PO QDAY zolpidem 10 mg tablet 10 mg PO QDAY cholecalciferol (vitamin D3) 2,000 unit capsule 4,000 unit PO ONCE vitamin B complex [B Complex-Vitamin B12] tablet 1 tab PO QDAY metformin 500 mg tablet 500 mg PO BID (DME) Accu-Chek Cee Plus test strp Strip See Rx Instructions .ROUTE .MEDSUPPLY Qty: 10 Rx Instructions: As directed aspirin [Adult Low Dose Aspirin] 81 mg tablet,delayed release (DR/EC) 81 mg PO DAILY Qty: 30 5RF omeprazole 40 mg capsule,delayed release(DR/EC) 40 mg PO QDAY Qty: 90 3RF Rx Instructions: swallow whole; do not crush, chew, dissolve, or cut/break Repatha SureClick 140 mg/mL pen injector 140 mg SQ Q2W Qty: 2 5RF Referrals Follow up/Referrals: Carmen Todd MD [Primary Care Provider] - See instructions Activity Restrictions/Add. Instructions Additional Instructions/Restrictions: *Monitor Temp, Over the counter Motrin or Tylenol as directed/as needed Tylenol every 4 hours and Motrin every 6 hours (as long as your family doctor has told you that you can take it) for fever or pain. and straight to ER if unable to lower temp less than 101.0 after medication given *Warm salt water gargles may help to soothe the throat *Throat Lozenges? *Warm fluids like tea with honey may help to soothe the throat? *Sleep elevated *Humidifier/Vaporizer Follow up IMMEDIATELY for new or worsening symptoms or no Noticeable improvement over the next 48-72 hours. 911 for difficulty breathing or swallowing You were tested for today for COVID19 your test result should be back in the next 24-48 hours, you may check your Results on the [facility] My Health Portal Clinical Impressions Clinical Impression: Viral syndrome Stand Alone Forms Stand Alone Forms: Work/School Release Instructions Patient Instructions: DI for Viral Syndrome, Preventing the Spread of Coronavirus Discharge Instructions, DI for COVID-19 (Suspected or Confirmed ) Discharge ED Provider: Edelmira Sheehan [facility] [place] HPI General Stated complaint: covid test, exposed Mode of Arrival: Ambulatory Source of Information: Patient Limitations: No Limitations Time Seen by Provider: 02/28/22 17:07 Description of Symptoms (Recalled from Triage Doc. 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 earlier for COVID States that she has been feeling achy for the last couple of days and had headache today so she wanted to get tested for COVID Related Data Home Medications Medication Instructions Recorded Confirmed cholecalciferol (vitamin D3) 50 4,000 unit PO ONCE Supplement 03/21/17 01/29/22 mcg (2,000 unit) capsule diltiazem HCl 240 mg capsule,24 240 mg PO QDAY blood pressure 03/21/17 01/29/22 hr,extended release levothyroxine 88 mcg tablet 88 mcg PO QDAY thyroid 03/21/17 01/29/22 (Synthroid) metformin 500 mg tablet 500 mg PO BID Diabetes 03/21/17 01/29/22 metoprolol succinate 25 mg 25 mg PO QDAY blood pre
[2022-02-28 17:12] VITALS: BP 132/73; PULSE 114; RESP 17; TEMP 37.1; O2SAT 99
== END 2022-02-28 17:19 | disposition home or self-care (01) ==
PROVIDERS: Emergency Provider Nurse Practitioner; PCP Family Medicine
DX: U07.1 COVID-19 (principal)
CPT/HCPCS: 99212; C9803; G0463; U0003; U0005

== ENCOUNTER → 2022-03-14 11:45 | Outpatient (CLI) | payer MEDICARE, SELFPAY ==
--- NOTE | 2022-03-14 11:53 | XR_ITS ---
FINAL REPORT CLINICAL HISTORY: Shortness of breath COMPARISON: None FINDINGS: Two views of the chest were obtained. The heart size and pulmonary vascularity are within normal limits. The mediastinum is normal. No acute pulmonary abnormality is identified. There is no pneumothorax. The bony thorax is intact. IMPRESSION: No acute cardiopulmonary process. Reviewed, Interpreted and Dictated by Yusuf Reyes III, MD Transcribed by Darlene Scott Authenticated and [facility]
== END ==
PROVIDERS: PCP Family Medicine; Visit Provider Physician Assistant
DX: R06.02 Shortness of breath (principal)
CPT/HCPCS: 71046

== ENCOUNTER → 2022-07-02 09:14 | Outpatient (CLI) | payer MEDICARE, SELFPAY ==
--- NOTE | 2022-07-02 09:18 | XR_ITS ---
FINAL REPORT CLINICAL HISTORY: Postmenopausal FINDINGS: Using L1-4, the bone mineral density of the spine is 0.846 g/cm2, corresponding to T-score of -1.8. Using the left hip, the bone mineral density of the femoral neck is 0.727 g/cm2, corresponding to a T-score of -1.1. Using the right hip: The bone mineral density of the femoral neck is 0.7030 g/cm2, corresponding to a T-score of -1.3. IMPRESSION: Diminished bone mineral density of the lumbar spine and hips consistent with osteopenia. NOTE: T-score: Standard deviation compared with peak bone mass of young adult mean. *Following the recommendations of the International Society of Bone densitometry, classification of hip BMD is based on the lower of two T-scores; total hip or femoral neck. Reviewed, Interpreted and Dictated by Ananth Carlin MD Transcribed by Veronica Forbes Authenticated and [facility]
--- NOTE | 2022-07-02 09:18 | MM_ITS ---
PROCEDURE INFORMATION: Exam: MG Bilateral Screening 3D Mammography Exam date and time: 07/02/2022 9:13 AM Age: 71 years old Clinical indication: Screening examination TECHNIQUE: Imaging protocol: Bilateral Screening tomosynthesis and 2D mammography including computer-aided detection (CAD) when performed. COMPARISON: 1. MG MM DIG SCREENING MAMM BI W/CAD 12/22/2020 3:16 PM 2. MG SCBI MM Dig screening mamm BI w/CAD 06/18/2017 3:27 PM FINDINGS: MAMMOGRAPHY: Breast composition: There are scattered areas of fibroglandular density. Mass: None. Architectural distortion: None. Calcifications: No suspicious calcifications. Asymmetric density: None. Skin thickening: None. Axillary adenopathy: None. IMPRESSION: No mammographic evidence of malignancy. Annual screening is recommended unless otherwise clinically indicated. ASSESSMENT: BI-RADS Category 1: Negative
== END ==
PROVIDERS: PCP Family Medicine; Visit Provider Family Medicine
DX: Z12.31 Encounter for screening mammogram for malignant neoplasm of breast (principal); Z78.0 Asymptomatic menopausal state; Z13.820 Encounter for screening for osteoporosis
CPT/HCPCS: 77063; 77067; 77080

== ENCOUNTER 2022-09-03 08:14 | Day surgery (SDC) | payer MEDICARE, SELFPAY ==
[2022-09-03] VITALS (10 sets, daily range): BP systolic 104–149; BP diastolic 56–85; PULSE 60–75; RESP 16–19; TEMP 36.1–36.3; O2SAT 92–98; BMI 24.2
[2022-09-03 09:09] LABS: Basophils # 0.1 K/mm3 (0-0.2); Basophils % 0.7 % (0.1-2.0); Eosinophils # 0.5 K/mm3 (0.0-0.4); Eosinophils % 4.1 % (0.1-12.0); Hematocrit 43.7 % (37.0-47.0); Hemoglobin 13.9 g/dL (12.2-16.2); Lymphocytes # 3.1 K/mm3 (0.7-4.5); Lymphocytes % 24.3 % (10-50); Mean Corpuscular HGB Conc 31.8 g/dL (31.8-35.4); Mean Corpuscular Hemoglobin 29.5 pg (27.0-31.2); Mean Corpuscular Volume 92.7 fl (81-99); Monocytes # 0.5 K/mm3 (0.1-1.0); Monocytes % 3.9 % (1.7-9.3); Neutrophils # 8.4 K/mm3 (1.8-7.8); Neutrophils % 66.9 % (37.0-80.0); Platelet Count 280 K/mm3 (142-424); Red Blood Count 4.72 M/mm3 (4.20-5.40); Red Cell Distribution Width 13.4 % (11.5-17.5); White Blood Count 12.6 K/mm3 (4.8-10.8)
--- NOTE | 2022-09-03 09:09 | EXP.ANES.CKL ---
[facility] Disclaimer: The information contained in this section may have been updated after the patient was seen, as this information can be updated by other users. 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 Diaphoresis Diastolic dysfunction DM (diabetes mellitus) Hearing Loss HTN (hypertension) Hypertensive heart disease Major depressive disorder RHIANNA (obstructive sleep apnea) Surgical History History of appendectomy History of colonoscopy History of hysterectomy History of knee replacement History of thyroidectomy History of tubal ligation Family History Other Diabetes Hypertension Social History Smoking Status: Current some day smoker tobacco type: cigarettes packs per day: 1 years smoked: 50 how long ago did patient quit smoking: she quit a few years ago; for 3 years; then restarted when daughter quit status: considering quitting second hand exposure: No alcohol intake: never counseling given: No counseling provided: none substance use type: denies use current occupational status: employed and retired Travel in the last 8 weeks: None adopted: No household members: spouse and family housing: house lives independently: Yes marital status: number of children: 3 education level: high school service: No intermediate: No 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; 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 current occupational exposures/hazards: No Hx Recent Travel: No sexually active: No caffeine: No physical activity: none liliana/confucianism: Taoism special liliana needs: No do you feel safe at home: Yes victim of physical abuse: No victim of emotional abuse: No victim of sexual abuse: No would you like helpful sources: No [facility] Anesthesia Checklist Patient Identification Patient Identification: Arm Band and Verbal (Name & ) Structural Data Admitted From: Home Planned Operative Procedure/s: Excision of sebaceous cyst Consent for Planned Operative Procedure(s) Verified: Yes NPO Status Verified Time NPO: 00:00 Additional verifications Anesthesia Reactions: No Hx Blood Transfusions: No Blood Transfusion Reaction: No Airway Assessment C-Spine Mobility Assessed: Yes TMJ Mobility Assessed: Yes Dentition: Dentures-good fit Neurological Assessment Level of Consciousness: Awake Hx Seizures: No Numbness or tingling in extremities: No Anesthesia Plan Anesthesia Risk discussed: Yes Anesthesia Plan: Verified ASA Class: III Anesthesia Type: General
[2022-09-03 09:10] LABS: POC Glucose,Bedside 114 (70-110)
[2022-09-03 09:18] LABS: Chloride 105 mmol/L (98-107); Potassium 4.6 mmoL/L (3.5-5.1); Sodium 141 mmol/L (136-145)
[2022-09-03 09:21] LABS: Anion Gap 12.6 mEq/L (5-15); Blood Urea Nitrogen 25 mg/dl (7-17); Calcium 9.7 mg/dl (8.4-10.2); Carbon Dioxide 28 mmol/L (22.0-30.0); Creatinine Clearance Estimated 50 mL/min (50-200); Estimated Glomerular Filt Rate 49 ml/min (>60); GFR (African American) 59 ML/MIN (>60); Glucose 107 mg/dl (74-100)
--- NOTE | 2022-09-03 11:22 | P.OP_ITS ---
Date of procedure: 09/03/22 Pre-op Diagnosis:: Sebaceous cyst left upper extremity and base of posterior scalp Post-op Diagnosis:: Same Procedure performed:: Excision of sebaceous cyst from left upper extremity (excisional length approximately 1.5 cm with intermediate complexity closure Excision of sebaceous cyst from base of posterior scalp (excisional length 1.5 cm) with simple closure Surgeon:: Yusuf Muller MD [employer] POLICE OFFICER:: Gordon Wallace Anesthesia: LMA Estimated blood loss (mL): 10 Clinical Note:: Patient is a 71-year-old female who was referred for evaluation of dermoid cyst on the left forearm. This had been present for about 3 months. Interestingly the patient stated that it had migrated. She had some focal discomfort. Patient also pointed out that she had previously had a cyst removed from the back of her neck at least 2 decades ago and still had a knot present. She was seen in the office. She had findings consistent with superficial sebaceous cyst on the left upper extremity. She also had findings of a skin punctum with residual sebaceous cyst at the base of the posterior scalp, upper posterior neck area. Operative findings:: Consistent with benign inclusion cyst. Operative note:: Patient was taken the operating room. She was positioned in supine position. Anesthesia was induced via LMA. She was repositioned in right lateral position. Both areas were able to be prepped and draped. Lesion was marked with a skin marker on the left upper extremity. Plan was for longitudinal incision with excision of skin punctum. Local anesthetic was infiltrated. Incision was made. Dissection was carried down to underlying cyst capsule. Cyst capsule and skin ellipse were dissected free in their entirety. Limited electrocautery was used for hemostasis. A couple of subdermal 3-0 Vicryl sutures were placed. Skin was closed with 4-0 nylon in interrupted fashion. Next attention was turned to the recurrent residual inclusion cyst on the posterior base of the scalp at the upper posterior neck area. There was a very prominent skin punctum with palpable underlying cyst. Local anesthetic was infiltrated after the skin was marked. Elliptical incision was made. Sharp dissection was carried down excising the skin ellipse and cyst in their entirety. Hemostasis was achieved with electrocautery. The incision was closed with interrupted 3-0 nylon sutures. Clean dry sterile dressings were applied to both surgical sites. Condition: stable Disposition: PACU Complications:: None immediately apparent
--- NOTE | 2022-09-03 11:33 | P.PNANES_ITS ---
[facility] Anesthesia Record Part I Anesthesia Record I Intake, IV Amount: 900 Estimated blood loss (mL): 5 Urine output (mL): 0 Blood Products used (#): none Blood Pressure: 149/85 SaO2: 92 Pulse Rate: 74 Respiratory Rate: 16 Temperature: 97 F Patient is:: Drowsy and Stable Stable to PACU at:: 11:30
--- NOTE | 2022-09-03 11:43 | EXP.GEN.HP ---
HPI HPI HPI: Patient is a very pleasant 71-year-old female referred for dermoid cyst on the left forearm. Patient states that this has been present for about 2 months. Interestingly she states that it has migrated. She states that originally started near her elbow but then has migrated more approximately apparently and has increased in size. She does have some discomfort focally at the location. Of note, patient states that she had previously had a cyst removed from the back of her neck at least 2 decades ago and she still has a knot present. 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 I had taken care of her of 55 years recently for hernia. [facility] Disclaimer: The information contained in this section may have been updated after the patient was seen, as this information can be updated by other users. 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 Diaphoresis Diastolic dysfunction DM (diabetes mellitus) Hearing Loss HTN (hypertension) Hypertensive heart disease Major depressive disorder RHIANNA (obstructive sleep apnea) Surgical History History of appendectomy History of colonoscopy History of hysterectomy History of knee replacement History of thyroidectomy History of tubal ligation Family History Other Diabetes Hypertension Social History Smoking Status: Current some day smoker tobacco type: cigarettes packs per day: 1 years smoked: 50 how long ago did patient quit smoking: she quit a few years ago; for 3 years; then restarted when daughter quit status: considering quitting second hand exposure: No alcohol intake: never counseling given: No counseling provided: none substance use type: denies use current occupational status: employed and retired Travel in the last 8 weeks: None adopted: No household members: spouse and family housing: house lives independently: Yes marital status: number of children: 3 education level: high school service: No group home: No 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; 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 current occupational exposures/hazards: No Hx Recent Travel: No sexually active: No caffeine: No physical activity: none liliana/sabianist: Yarsani special liliana needs: No do you feel safe at home: Yes victim of physical abuse: No victim of emotional abuse: No victim of sexual abuse: No would you like helpful sources: No Meds Home Medications and Allergies Home Medications Medication Instructions Recorded Confirmed Type cholecalciferol (vitamin D3) 50 4,000 unit PO ONCE Supplement 03/21/17 08/02/22 History mcg (2,000 unit) capsule diltiazem HCl 240 mg capsule,24 240 mg PO QDAY blood pressure 03/21/17 08/02/22 History hr,extended release levothyroxine 88 mcg tablet 88 mcg PO QDAY thyroid 03/21/17 08/02/22 History (Synthroid) metformin 500 mg tablet 500 mg PO BID Diabetes 03/21/17 08/02/22 History metoprolol succinate 25 mg 25 mg PO QDAY blood pressure 03/21/17 08/02/22 History tablet,extended release 24 hr potassium chloride 20 mEq oral 40 meq PO BID Supplement 03/21/17 08/02/22 History packet (Klor-Con) vitamin B complex (B 1 tab PO QDAY Supplement 03/21/17 08/02/22 History Complex-Vitamin B12 tablet) zolpidem 10 mg tablet 10 mg PO QDAY sleep 03/21/17 08/02/22 History omeprazole 40 mg capsule,delayed 40 mg PO QDAY stomach #90 caps 09/09/17 08/02/22 Rx release glimepiride 2 mg tablet 2 mg PO DAILY Diabetes 09/18/21 08/02/22 History meloxicam 15 mg tablet 15 mg PO DAILY . 09/18/21 08/02/22 History triamterene 37.5 1 t
[2022-09-03 12:13] LABS: POC Glucose,Bedside 106 (70-110)
--- NOTE | 2022-09-03 13:57 | P.PNANES_ITS ---
[facility] Anesthesia Record Part II Anesthesia Record Part II Discharge Time: 11:59 Destination: Surgical Day Care (OP Surgery) PACU nurse assessment reviewed?: Yes Patient Condition:: Good Anesthesia Complications:: None Swallowing reflex intact?: Yes Cyanosis?: No Blood Pressure: 136/72 Pulse Rate: 69 Temperature: 97 F Mental Status: Alert & Oriented Pain level:: 0 Nausea and/or vomitting:: None Intake, IV Amount: 0
== END 2022-09-03 12:30 | disposition home or self-care (01) ==
PROVIDERS: PCP Family Medicine; Visit Provider Surgery
DX: L72.3 Sebaceous cyst (principal); L72.0 Epidermal cyst; E11.9 Type 2 diabetes mellitus without complications
CPT/HCPCS: 11402; 11422; 12031; 80048; 82962; 85025; 88304; 96374; J2405

== ENCOUNTER → 2022-10-08 12:28 | Outpatient (CLI) | payer MEDICARE, SELFPAY ==
[2022-10-08 13:08] LABS: Alanine Aminotransferase 21 U/L (12-78); Alkaline Phosphatase 82 U/L (38-126); Aspartate Amino Transferase 27 U/L (14-36); Bilirubin,Indirect 0.2 mg/dL (0.0-0.9); Bilirubin,Total 0.2 mg/dl (0.2-1.3); Bilirubin,Unconjugated 0.2 mg/dL (0.0-1.1); Cholesterol 140 mg/dl (140-200); HDL Cholesterol 47 mg/dl (40-60); Total Protein,Serum 6.7 g/dl (6.3-8.2); Triglycerides 137 mg/dl (30-150); VLDL Cholesterol 27 mg/dL (0-40)
[2022-10-08 13:20] LABS: Direct LDL Cholesterol 65.21 mg/dL (100-129)
== END ==
PROVIDERS: PCP Family Medicine; Visit Provider Nurse Practitioner
DX: R55 Syncope and collapse; I25.10 Atherosclerotic heart disease of native coronary artery without angina pectoris; I11.9 Hypertensive heart disease without heart failure; E11.9 Type 2 diabetes mellitus without complications; G47.33 Obstructive sleep apnea (adult) (pediatric); R94.31 Abnormal electrocardiogram [ECG] [EKG]; Z79.84 Long term (current) use of oral hypoglycemic drugs; Z72.0 Tobacco use
CPT/HCPCS: 36415; 80061; 80076

== ENCOUNTER 2023-04-16 07:32 | Day surgery (SDC) | payer MEDICARE, SELFPAY ==
[2023-04-11 13:32] VITALS: BMI 27.4
[2023-04-16] MEDS: TETRACAINE 0.5% OPTH SOL 15ML OP ×3 (08:05→08:10)
[2023-04-16] MEDS: PHENYLEPHRINE 2.5% OPHTH SOLN 2ML 0.0500000000000000028 ML OP ×3 (08:07→08:10)
[2023-04-16] MEDS: CYCLOPENTOLATE 2% OPHTH SOLN 2ML BOTTLE OP ×3 (08:07→08:11)
[2023-04-16] MEDS: LACTATED RINGERS 1000ML 1,000 ML 25 ML IV (08:12)
[2023-04-16 08:13] VITALS: BP 124/65; PULSE 82; RESP 18; TEMP 36.6; O2SAT 99
[2023-04-16 08:20] LABS: POC Glucose,Bedside 112 (70-110)
[2023-04-16 09:04] VITALS: BP 144/68; PULSE 79; RESP 16; O2SAT 99
[2023-04-16] MEDS: TOBRAMYCIN/DEX OPTH SUSP 2.5ML OP (09:08)
[2023-04-16 09:09] VITALS: BP 142/70; PULSE 77; RESP 16; O2SAT 99
[2023-04-16] MEDS: MIDAZOLAM 2MG/2ML VIAL 1 MG IV (09:09)
[2023-04-16] MEDS: LIDOCAINE 1% PF 2ML AMPULE 2 ML IJ (09:09)
[2023-04-16] MEDS: TIMOLOL 0.5% OPTH SOLN 5ML OP (09:09)
[2023-04-16 09:14] VITALS: BP 157/72; PULSE 79; RESP 16; O2SAT 100
[2023-04-16 09:21] VITALS: BP 144/89; PULSE 82; RESP 16; TEMP 36.4; O2SAT 99
== END 2023-04-16 09:52 | disposition home or self-care (01) ==
PROVIDERS: PCP Family Medicine; Visit Provider Ophthalmology
PROC: (CPT 66984; principal; 2023-04-16 09:00)
DX: H25.812 Combined forms of age-related cataract, left eye (principal); E11.36 Type 2 diabetes mellitus with diabetic cataract; H25.9 Unspecified age-related cataract
CPT/HCPCS: 66984; 82962; V2632

== ENCOUNTER 2023-05-14 07:33 | Day surgery (SDC) | payer MEDICARE, SELFPAY ==
[2023-05-10 14:14] VITALS: BMI 24.2
[2023-05-14] VITALS (8 sets, daily range): BP systolic 144–190; BP diastolic 65–101; PULSE 72–77; RESP 16; TEMP 36.4–36.6; O2SAT 96–100
[2023-05-14] MEDS: PHENYLEPHRINE 2.5% OPHTH SOLN 2ML 0.0500000000000000028 ML OP ×3 (08:39→08:48)
[2023-05-14] MEDS: CYCLOPENTOLATE 2% OPHTH SOLN 2ML BOTTLE OP ×3 (08:39→08:48)
[2023-05-14] MEDS: TETRACAINE 0.5% OPTH SOL 15ML OP ×3 (08:40→08:48)
[2023-05-14] MEDS: LACTATED RINGERS 1000ML 1,000 ML 25 ML IV (08:41)
[2023-05-14] MEDS: MIDAZOLAM 2MG/2ML VIAL 1 MG IV (10:00)
[2023-05-14] MEDS: SODIUM CHLORIDE 0.9% 10ML FLUSH SYRINGE 10 ML IV (10:06)
[2023-05-14] MEDS: TIMOLOL 0.5% OPTH SOLN 5ML OP (10:06)
[2023-05-14] MEDS: TOBRAMYCIN/DEX OPTH SUSP 2.5ML OP (10:06)
[2023-05-14] MEDS: LIDOCAINE 1% PF 2ML AMPULE 2 ML IJ (10:07)
[2023-05-15 12:31] LABS: POC Glucose,Bedside 109 (70-110)
== END 2023-05-14 10:37 | disposition home or self-care (01) ==
PROVIDERS: PCP Family Medicine; Visit Provider Ophthalmology
PROC: (CPT 66984; principal; 2023-05-14 09:30)
DX: E11.36 Type 2 diabetes mellitus with diabetic cataract (principal); H25.091 Other age-related incipient cataract, right eye
CPT/HCPCS: 66984; 82962; 96375; V2632

== ENCOUNTER 2023-07-03 14:50 | Outpatient (CLI) | payer MEDICARE, SELFPAY ==
--- NOTE | 2023-07-03 14:55 | CT_ITS ---
FINAL REPORT CLINICAL HISTORY: current smoker low dose screen COMPARISON: None FINDINGS: CT CHEST LOW DOSE SCREENING HISTORY: Screening exam for lung cancer. Current smoker, 80-ckix-assi pack year smoking history DOSE: CTDIvol: 2.9 mGy, DLP: 98.21 mGy*cm COMPARISON: None . TECHNIQUE: Axial CT without IV contrast administration using low dose protocol FINDINGS: There is airspace disease with fine nodules present in the right lower lobe and right middle lobe consistent with bronchiolitis. There is minimal involvement of the right apex as well.. There is a 3 mm left lower lobe nodule seen best on image #47 along the major fissure, favor intrafissural node. There is also an oval nodule along the minor fissure measuring 7 x 4 mm in size, once again favor intrafissural node. No pleural or pericardial effusion is seen . There are scattered small mediastinal nodes, including a right paratracheal node at the level of the billie measuring 21 x 9 mm in size. Multiple calcified nodes are present as well. The left adrenal is enlarged, measuring approximately 12 mm, with a density of 11 Hounsfield units, favor adenoma. IMPRESSION: Airspace disease as described in the right lower lobe and right middle lobe consistent with multifocal bronchopneumonia. There is likely involvement of the right apex as well. 2 parenchymal nodules are present in the left lower lobe and along the minor fissure, favor intrafissural nodes. Scattered small cervical nodes with a right paratracheal 21 x 9 mm node. Left adrenal enlargement, favor adenoma. LUNG RADS CATEGORY 2S RECOMMENDATION: 12 month LDCT follow up Reviewed, Interpreted and Dictated by Carmen Devine MD Transcribed by Madhavi Miles Authenticated and [facility]
--- NOTE | 2023-07-03 14:58 | MM_ITS ---
PROCEDURE INFORMATION: Exam: MG Bilateral Screening 3D Mammography Exam date and time: 07/03/2023 3:02 PM Age: 72 years old Clinical indication: Screening examination TECHNIQUE: Imaging protocol: Bilateral Screening tomosynthesis and 2D mammography including computer-aided detection (CAD) when performed. COMPARISON: 1. MG MM DIG SCREENING MAMM BI W/CAD 07/02/2022 9:13 AM 2. MG MM DIG SCREENING MAMM BI W/CAD 12/22/2020 3:16 PM FINDINGS: MAMMOGRAPHY: Breast composition: There are scattered areas of fibroglandular density. Mass: None. Architectural distortion: None. Calcifications: No suspicious calcifications. Asymmetric density: None. Skin thickening: None. Axillary adenopathy: None. IMPRESSION: No mammographic evidence of malignancy. Annual screening is recommended unless otherwise clinically indicated. ASSESSMENT: BI-RADS Category 1: Negative
== END 2023-07-03 23:59 | disposition home or self-care (01) ==
LOC: RAD 14:51
PROVIDERS: PCP Family Medicine; Visit Provider Family Medicine
DX: Z87.891 Personal history of nicotine dependence (principal); Z12.31 Encounter for screening mammogram for malignant neoplasm of breast; Z12.2 Encounter for screening for malignant neoplasm of respiratory organs
CPT/HCPCS: 71271; 77063; 77067

== ENCOUNTER 2023-08-19 12:22 | Outpatient (CLI) | payer MEDICARE, SELFPAY ==
--- NOTE | 2023-08-19 12:29 | XR_ITS ---
FINAL REPORT CLINICAL HISTORY: H/O PNEUMONIA COMPARISON: 03/14/2022 FINDINGS: 2 views of the chest were obtained . The heart is normal in size. The mediastinum is within normal limits. The lungs are clear. There is no pneumothorax. Osseous structures are unremarkable. IMPRESSION: No acute cardiopulmonary process. Reviewed, Interpreted and Dictated by Carmen Devine MD Transcribed by Renee Otto Authenticated and [facility]
== END 2023-08-19 23:59 | disposition home or self-care (01) ==
PROVIDERS: PCP Family Medicine; Visit Provider Family Medicine
DX: Z87.01 Personal history of pneumonia (recurrent) (principal)
CPT/HCPCS: 71046

== ENCOUNTER 2023-08-27 10:56 | Outpatient (CLI) | payer MEDICARE, SELFPAY ==
--- NOTE | 2023-08-27 11:09 | US_ITS ---
FINAL REPORT CLINICAL HISTORY: ABNORMAL RENAL FUNCTION COMPARISON: None FINDINGS: RENAL ULTRASOUND Ultrasound images of the kidneys were obtained. Limited images of the liver parenchyma demonstrates normal echogenicity. The right kidney measures 11.7 cm in length. It is normal echogenicity. There is no hydronephrosis. The left kidney measures 9.9 cm in length. It is normal echogenicity. There is no hydronephrosis. IMPRESSION: Normal renal ultrasound. Reviewed, Interpreted and Dictated by Carmen Devine MD Transcribed by Darlene Scott Authenticated and [facility]
== END 2023-08-27 23:59 | disposition home or self-care (01) ==
LOC: RAD 10:58
PROVIDERS: PCP Family Medicine; Visit Provider Family Medicine
DX: N28.9 Disorder of kidney and ureter, unspecified (principal)
CPT/HCPCS: 76770

== ENCOUNTER 2023-12-13 10:44 | Outpatient (CLI) | payer MEDICARE, SELFPAY ==
--- NOTE | 2023-12-13 10:53 | CT_ITS ---
FINAL REPORT TECHNIQUE: Thin section axial CT images were obtained through the neck after intravenous contrast administration. Coronal and sagittal reformats were also obtained. This study was performed with techniques to keep radiation doses as low as reasonably achievable (ALARA). Individualized dose reduction techniques using automated exposure control or adjustment of mA and/or kV according to the patient's size were employed. CLINICAL HISTORY: OROPHARYNGEAL SYSPHAGIA COMPARISON: None FINDINGS: The nasopharynx, is unremarkable. There are left tonsillar pillar calcifications, consistent with post inflammatory tonsillar stones. There is mild soft tissue fullness/asymmetry in the epiglottic larynx, a finding of uncertain significance. There is adenopathy. The thyroid gland is small, without evidence of a focal mass. The visualized sinuses are clear. Degenerative change is present in the cervical spine. IMPRESSION: Mild soft tissue fullness/asymmetry in the epiglottic portion of the larynx, a finding of uncertain significance. This could be artifactual, however would consider correlation with laryngoscopy if clinically indicated. Left tonsillar pillar calcifications, most likely post inflammatory. Small thyroid gland without a focal mass. Reviewed, Interpreted and Dictated by Yusuf Reyes III, MD Transcribed by Madhavi Miles Authenticated and [facility]
[2023-12-13] MEDS: IOPAMIDOL-370 (76%);100ML BOTTLE 75 ML IV (11:28)
[2023-12-13] MEDS: SODIUM CHLORIDE 0.9% 10ML SYR (RAD ONLY) 10 ML IV (11:28)
== END 2023-12-13 23:59 | disposition home or self-care (01) ==
LOC: RAD 10:48
PROVIDERS: PCP Family Medicine; Visit Provider Family Medicine
DX: R13.12 Dysphagia, oropharyngeal phase (principal)
CPT/HCPCS: 70491; Q9967

== ENCOUNTER 2024-02-12 07:46 | Outpatient (CLI) | payer MEDICARE, SELFPAY ==
--- NOTE | 2024-02-12 07:48 | FL_ITS ---
FINAL REPORT CLINICAL HISTORY: esophageal dysphagia ft: 1:30 614.81 dap FINDINGS: ESOPHAGRAM HISTORY: Dysphagia PROCEDURE: The patient ingested barium. Effervescent crystals were also administered. 13 fluoroscopic spot films were obtained. Fluoro time: 1 minute 30 seconds DAP: 614.81 uGy.m2 FINDINGS: No esophageal stricture is identified. There is a very small sliding-type hiatal hernia. A 13 mm barium passes through the esophagus and into the stomachand without delay. Esophageal dysmotility was demonstrated during the exam. No gastroesophageal reflux was demonstrated during the exam. IMPRESSION: Small sliding-type hiatal hernia and esophageal dysmotility. Films reviewed , interpreted and dictated by Dr. Reyes. Transcribed by Ian Alejandro PA-C. Reviewed, Interpreted and Dictated by Yusuf Reyes III, MD Transcribed by DANE Liu Authenticated and [facility]
[2024-02-12] MEDS: BARIUM SULFATE (E-Z-HD 340GM);135ML BOTTLE 135 ML PO (08:25)
[2024-02-12] MEDS: E-Z-GASII EFFERVESCENT GRANULES;1PK 1 EACH PO (08:25)
[2024-02-12] MEDS: BARIUM SULFATE(LIQUID E-Z-PAQUE);355ML BOTTLE 355 ML PO (08:25)
== END 2024-02-12 23:59 | disposition home or self-care (01) ==
LOC: RAD 07:48
PROVIDERS: PCP Family Medicine; Visit Provider Student in an Organized Health Care Education/Training Program
DX: R13.19 Other dysphagia (principal)
CPT/HCPCS: 74220

== ENCOUNTER 2024-04-16 10:20 | Day surgery (SDC) | payer MEDICARE, SELFPAY ==
[2024-04-14 12:00] VITALS: BMI 24.3
--- NOTE | 2024-04-14 12:00 | SUR.PREOP ---
pt will be bringing her med list with her the morning of procedure
[2024-04-16 10:39] VITALS: BP 162/76; PULSE 76; RESP 18; O2SAT 98
[2024-04-16] MEDS: LACTATED RINGERS 1000ML 1,000 ML 50 ML IV (10:57)
[2024-04-16 10:58] LABS: POC Glucose,Bedside 105 (70-110)
--- NOTE | 2024-04-16 10:59 | EXP.HP ---
History of Present Illness *Admission Date: 04/16/24 *Reason for visit:: Dysphagia *History of present illness: Ms. Lu is a 73-year-old female who is here for diagnostic EGD secondary to dysphagia/swallowing difficulty and choking on fluids. The examination is deemed medically necessary for EGD. The patient has been seen, interviewed and examined prior to the procedure by both myself and the anesthesia provider. [facility] Disclaimer: The information contained in this section may have been updated after the patient was seen, as this information can be updated by other users. Medical History Eustachian tube dysfunction Esophageal dysphagia Crepitus of right TMJ on opening of jaw Hearing Loss -mild hearing loss on audiometrics RHIANNA (obstructive sleep apnea) Moderate to severe RHIANNA, improving compliance with CPAP at 9 cm, denies any intolerance. Major depressive disorder CAD (coronary artery disease) Diastolic dysfunction Hypertensive heart disease Abnormal ECG Diaphoresis DM (diabetes mellitus) HTN (hypertension) Abnormal result of cardiovascular function study Surgical History History of knee replacement History of appendectomy History of thyroidectomy History of tubal ligation History of hysterectomy History of colonoscopy Family History Other Diabetes Hypertension Social History (Updated 04/16/24 @ 10:54 by Bushra Monique RN) Smoking Status: Current some day smoker tobacco type: cigarettes packs per day: 1 years smoked: 50 how long ago did patient quit smoking: she quit a few years ago; for 3 years; then restarted when daughter quit status: considering quitting second hand exposure: No alcohol intake: never counseling given: No counseling provided: none substance use type: denies use current occupational status: employed and retired Travel in the last 8 weeks: None adopted: No household members: spouse and family housing: house lives independently: Yes marital status: number of children: 3 education level: high school service: No detention: No 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; 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 current occupational exposures/hazards: No Hx Recent Travel: No sexually active: No caffeine: Yes physical activity: none liliana/catholic: Anabaptist special liliana needs: No do you feel safe at home: Yes victim of physical abuse: No victim of emotional abuse: No victim of sexual abuse: No would you like helpful sources: No Have you lived/traveled outside [place] in past 30 days?: No Contact w/someone who lives/traveled outside US past 30 days?: No Exposure to someone with infectious disease in past 14 days?: No Do you have a fever (greater than 100.4 F or 38 C)?: No Have you tested positive for COVID-19: Yes Exposed to someone with COVID-19 in past 14 days?: No Do you have a sore throat?: No Do you have a cough?: No Do you have any weakness?: No Are you experiencing any nausea/vomitting?: No Do you have any diarrhea?: No Are you experiencing any unusual bleeding?: No Do you have any muscle aches/pain?: No Do you have any abdominal pain?: No Are you experiencing loss of taste or smell?: No Other Medical History Have you received the Flu Vaccine for this season: Yes Have you received the Pneumonia Vaccine: No Review of Systems Review of Systems Review of systems (narrative): Negative *Cardiovascular Comments: Negative *Gastrointestinal Comments: Negative *Genitourinary Comments: Negative *Musculoskeletal Comments: Negative *Neurologic Comments: Negative Meds Home Medications and Allergies Home Medications ?Medication ?Instructions ?Recorded ?Confirmed ?Type cholecalciferol (vitamin D3) 50 4,000 unit PO ONCE Supplement 03/21/17 04/16/24 History mcg (2,000 unit) capsule diltiazem HCl 240 mg capsule,24 240 mg PO QDAY blood pressure 03/21/17 04/16/24 History hr,extended release levothyroxine 88 mcg tablet 88 mcg PO QDAY thyroid 03/21/17 04/16/24 History (Synthroid) metformin 500 mg tablet 500 mg PO BID Diabetes 03/21/17 04/16/24 History metoprolol succinate 25 mg 25 mg PO QDAY blood pressure 03/21/17 04/16/24 History tablet,extended release 24 hr potassium chloride 20 mEq oral 40 meq PO BID Supplement 03/21/17 04/16/24 History packet (Klor-Con) vitamin B complex (B 1 tab PO QDAY Supplement 03/21/17 04/16/24 History Complex-Vitamin B12 tablet) zolpidem 10 mg tablet 10 mg PO QDAY sleep 03/21/17 04/16/24 History omeprazole 40 mg capsule,delayed 40 mg PO QDAY stomach #90 caps 09/09/17 04/16/24 Rx release glimepiride 2 mg tablet 2 mg PO DAILY Diabetes 09/18/21 04/16/24 History meloxicam 15 mg tablet 15 mg PO DAILY . 09/18/21 04/16/24 History triamterene 37.5 1 tab PO DAILY High blood pressure 09/18/21 04/16/24 History mg-hydrochlorothiazide 25 mg tablet blood sugar diagnostic (Accu-Chek #10 ea 10/17/21 02/25/24 History Cee Plus test strips) duloxetine 30 mg capsule,delayed 60 mg PO DAILY . 10/23/21 04/16/24 History release aspirin 81 mg tablet,delayed 81 mg PO DAILY . 09/03/22 04/16/24 History release (Adult Low Dose Aspirin) evolocumab 140 mg/mL subcutaneous See Rx Instructions .Route 09/16/23 04/16/24 Rx pen injector (Aurora Tamez) .COMPLEX #2 mL famotidine 40 mg tablet 40 mg PO HS #30 tabs 01/08/24 04/16/24 Rx fluticasone propionate 50 1 spray intranasal BID #60 mL 01/08/24 04/16/24 Rx mcg/actuation nasal spray,suspension (Flonase Allergy Relief) duloxetine 60 mg capsule,delayed 60 mg PO DAILY 02/25/24 04/16/24 History release potassium chloride 20 mEq 20 meq PO ONCE 02/25/24 04/16/24 History tablet,extended release(part/cryst) New Prescriptions to Start Prescriptions: Allergies Allergy/AdvReac Type Severity Reaction Status Date / Time cephalexin Allergy Mild Unknown Verified 04/16/24 10:36 allergy reaction levofloxacin Allergy Mild Unknown Verified 04/16/24 10:36 allergy reaction Sulfa (Sulfonamide Allergy Mild Unknown Verified 04/16/24 10:36 Antibiotics) allergy reaction sulfamethoxazole (From Allergy Mild Unknown Verified 04/16/24 10:36 Bactrim) allergy reaction tolmetin Allergy Mild Unknown Verified 04/16/24 10:36 allergy reaction trimethoprim (From Bactrim) Allergy Mild Unknown Verified 04/16/24 10:36 allergy reaction Exam Data for Last 24 hours Vital signs and Labs for Last 24 Hours: Pulse Resp BP Pulse Ox O2 Del Method 76 18 162/76 H 98 Room Air 04/16/24 10:39 04/16/24 10:39 04/16/24 10:39 04/16/24 10:39 04/16/24 10:39 Laboratory Results - last 24 hr 04/16/24 10:45: POC Glucose 105 I & O for Last 24 hours: Intake & Output 04/13/24 04/14/24 04/15/24 04/16/24 23:59 23:59 23:59 23:59 Weight 151 lb *Routine HEENT Exam Head: Present normocephalic Eye: Present EOMI and PERRL ENT: Present mucous membranes moist *Routine Neck Exam Neck: Present supple *Routine Respiratory Exam Respiratory: Present CTA bilaterally *Routine Cardiovascular Exam Cardiovascular: Present RRR *Routine Abdominal Exam Abdominal: Present soft and normoactive bowel sounds; Absent tenderness *Routine Rectal Exam Rectal:: deferred *Routine Genitalia Exam Genitalia:: deferred *Routine Extremities Exam Extremities: Absent cyanosis, clubbing or edema *Routine Skin Exam Skin: Present warm; Absent rash *Routine Neurological Exam Neurological: Present alert and oriented X3 Assessment and Plan *Assessment and plan (1) Dysphagia: Status: Acute Category: Medical Code(s): R13.10 - Dysphagia, unspecified (2) Choking: Status: Acute Category: Medical Code(s): T17.308A - Unspecified foreign body in larynx causing other injury, initial encounter (3) Hoarseness: Status: Acute Category: Medical Code(s): R49.0 - Dysphonia (4) Acid reflux: Status: Acute Category: Medical Code(s): K21.9 - Gastro-esophageal reflux disease without esophagitis (5) Bloating: Status: Acute Category: Medical Code(s): R14.0 - Abdominal distension (gaseous) Plan A/P: 1. Dysphagia with choking and hoarseness and belching with reflux and bloating is the preprocedural diagnosis. The patient will be anesthetized/sedated using MAC sedation. The patient has been seen and examined. Cardiac and lung assessment prior to the examination is stable. Proceed with planned diagnostic EGD
--- NOTE | 2024-04-16 11:05 | P.PNANES_ITS ---
[facility] Disclaimer: The information contained in this section may have been updated after the patient was seen, as this information can be updated by other users. Medical History Eustachian tube dysfunction Esophageal dysphagia Crepitus of right TMJ on opening of jaw Hearing Loss -mild hearing loss on audiometrics RHIANNA (obstructive sleep apnea) Moderate to severe RHIANNA, improving compliance with CPAP at 9 cm, denies any intolerance. Major depressive disorder CAD (coronary artery disease) Diastolic dysfunction Hypertensive heart disease Abnormal ECG Diaphoresis DM (diabetes mellitus) HTN (hypertension) Abnormal result of cardiovascular function study Surgical History History of knee replacement History of appendectomy History of thyroidectomy History of tubal ligation History of hysterectomy History of colonoscopy Family History Other Diabetes Hypertension Social History (Updated 04/16/24 @ 10:54 by Bushra Monique RN) Smoking Status: Current some day smoker tobacco type: cigarettes packs per day: 1 years smoked: 50 how long ago did patient quit smoking: she quit a few years ago; for 3 years; then restarted when daughter quit status: considering quitting second hand exposure: No alcohol intake: never counseling given: No counseling provided: none substance use type: denies use current occupational status: employed and retired Travel in the last 8 weeks: None adopted: No household members: spouse and family housing: house lives independently: Yes marital status: number of children: 3 education level: high school service: No fdc: No 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; 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 current occupational exposures/hazards: No Hx Recent Travel: No sexually active: No caffeine: Yes physical activity: none liliana/anabaptist: Bahai special liliana needs: No do you feel safe at home: Yes victim of physical abuse: No victim of emotional abuse: No victim of sexual abuse: No would you like helpful sources: No Have you lived/traveled outside US in past 30 days?: No Contact w/someone who lives/traveled outside US past 30 days?: No Exposure to someone with infectious disease in past 14 days?: No Do you have a fever (greater than 100.4 F or 38 C)?: No Have you tested positive for COVID-19: Yes Exposed to someone with COVID-19 in past 14 days?: No Do you have a sore throat?: No Do you have a cough?: No Do you have any weakness?: No Are you experiencing any nausea/vomitting?: No Do you have any diarrhea?: No Are you experiencing any unusual bleeding?: No Do you have any muscle aches/pain?: No Do you have any abdominal pain?: No Are you experiencing loss of taste or smell?: No [facility] Anesthesia Checklist Patient Identification Patient Identification: Arm Band Structural Data Admitted From: Home Planned Operative Procedure/s: EGD Consent for Planned Operative Procedure(s) Verified: Yes Verified Documents: Surgical Consent and History and Physical NPO Status Verified Time NPO: 00:00 Additional verifications Anesthesia Reactions: No Hx Blood Transfusions: No Blood Transfusion Reaction: No Airway Assessment Mallampati Score:: Class II C-Spine Mobility Assessed: Yes TMJ Mobility Assessed: Yes Dentition: Good Dentition Neurological Assessment Level of Consciousness: Awake, Alert and Appropriate Anesthesia Plan Anesthesia Risk discussed: Yes Anesthesia Plan: Verified ASA Class: III Anesthesia Type: MAC
--- NOTE | 2024-04-16 11:09 | HMH.PROCNOTE ---
[facility] Procedure Note Date: 04/16/24 Time: 11:17 Procedure Note:: Upper Endoscopy Procedure Report: Esophagogastroduodenoscopy with cold biopsies and TTS balloon dilation Endoscopost: Josiah Gilbert II, MD Referring Physician: Manan Todd MD Date of Procedure: April 16, 2024 Equipment: Olympus GIF 190 standard upper endoscope Sedation: MAC sedation Indications: Mrs. Lu is a 73-year-old female with globus sensation, choking and frequent clearance of the throat. She does have some difficulty with fluids and some dysphagia. She always feels as if food goes down slowly when she swallows. She has had increased hoarseness. She also reports heartburn and reflux. She has been on omeprazole for at least 5 years and added famotidine because of her symptoms. She also has some chronic constipation and may skip 3 to 4 days without a bowel movement. She was diagnosed with Crohn's years ago. [facility] which [facility] normal with no evidence of any Crohn's disease. The patient did have a barium swallow on February 12, 2024 and this did show a small sliding hiatal hernia and moderate esophageal dysmotility. Procedure: Prior to the procedure, a history and physical exam was performed, and patient's medications and allergies were reviewed. The risks, benefits and alternatives of the sedation and procedure were discussed with the patient. All questions were answered and informed consent was obtained. The patient was brought to the procedure room. Patient identification and proposed procedure were verified by the physician and the nurse. The patient was placed in a left lateral decubitus position and the scope was passed under direct vision. Throughout the procedure, the patient's blood pressure, pulse, and oxygen saturations were monitored continuously. The upper GI endoscopy was accomplished without difficulty. The patient tolerated the procedure well. Findings: The scope was passed directly into the upper esophagus and advanced to the third portion of the duodenum. The post bulbar duodenum, ampulla and duodenal bulb were normal with normal mucosa and conniventes. The scope was withdrawn through a normal duodenal bulb and pylorus into the stomach. There was moderate linear gastropathy of the antrum and mild chronic gastritis of the body and fundus. Cold biopsies were taken along the lesser curvature. Upon retroflexion there was a very small sliding 1 to 2 cm hiatal hernia. The scope was then withdrawn into the esophagus. There was no evidence of any reflux esophagitis or Proctor's. There was no rings, furrowing or strictures. There was no proximal esophageal inlet patch. There were moderate tertiary contractions and evidence of moderate esophageal dysmotility. The entire esophagus was dilated to 60 Bolivian/20 mm with a TTS hydrostatic balloon. There was very mild resistance at the cricopharyngeus/cricopharyngeal spasm. The remainder of the esophageal mucosa was normal. Impression: 1. Mild cricopharyngeal spasm 2. Nonerosive GERD with moderate esophageal dysmotility and small 1 to 2 cm sliding hiatal hernia 3. Moderate linear reactive gastropathy of antrum and mild chronic gastritis of proximal stomach Plan: I will follow-up the biopsies. She does describe globus sensation which is a functional esophageal disorder characterized by a sensation of a lump, retained food bolus or mucus, or tightness in the throat even though swallowing can be performed normally, so it is not a true cause of swallowing difficulties, but it can become quite irritating. Occasionally persons can feel or report some very mild chest pressure or rarely chest pain. The lump in the throat sensation that characterizes globus pharyngis is often caused by inflammation of one or more parts of the throat (larynx/hypopharynx-in the lower portion of the throat) due to spasm of the cricopharyngeus (upper esophageal sphincter muscle). This inflammation occurs from increased gas pressure gradients driving gastroesophageal reflux and associated esophageal spasm. This gas pressure gradient is related to her obstipation. We will discuss treatment options.
[2024-04-16 11:11] VITALS: O2SAT 98
[2024-04-16 11:19] VITALS: BP 124/68; PULSE 84; RESP 16; TEMP 36.3; O2SAT 96
[2024-04-16 11:29] VITALS: BP 133/74; PULSE 83; RESP 16; O2SAT 96
[2024-04-16 11:39] VITALS: BP 142/69; PULSE 81; RESP 16; O2SAT 97
[2024-04-16 11:47] VITALS: BP 139/84; PULSE 75; RESP 16; O2SAT 98
== END 2024-04-16 11:50 | disposition home or self-care (01) ==
PROVIDERS: PCP Family Medicine; Visit Provider Internal Medicine Gastroenterology
PROC: 0DJ08ZZ Inspection of Upper Intestinal Tract, Via Natural or Artificial Opening Endoscopic (ICD-10-PCS; CPT 43239; principal; 2024-04-16 12:00)
DX: R13.10 Dysphagia, unspecified (principal); T17.308A Unspecified foreign body in larynx causing other injury, initial encounter; R49.0 Dysphonia; K21.9 Gastro-esophageal reflux disease without esophagitis; R14.0 Abdominal distension (gaseous); K31.9 Disease of stomach and duodenum, unspecified; K29.70 Gastritis, unspecified, without bleeding; K22.4 Dyskinesia of esophagus; K44.9 Diaphragmatic hernia without obstruction or gangrene; J38.5 Laryngeal spasm; E11.9 Type 2 diabetes mellitus without complications; Z79.84 Long term (current) use of oral hypoglycemic drugs; Z72.0 Tobacco use
CPT/HCPCS: 43239; 43249; 82962; C1726; J7120

== ENCOUNTER 2024-05-27 14:31 | Outpatient (CLI) | payer MEDICARE, SELFPAY ==
[2024-05-27 14:48] LABS: Coronavirus 19, PCR Not Detected (NotDetected); Human Rhinovirus Not Detected (NotDetected); Influenza A, PCR Not Detected (NotDetected); Influenza B, PCR Not Detected (NotDetected); Respiratory Syncytial Virus Not Detected (NotDetected)
== END 2024-05-27 23:59 | disposition home or self-care (01) ==
LOC: LAB 14:31
PROVIDERS: PCP Family Medicine; Visit Provider Physician Assistant
DX: R06.02 Shortness of breath (principal)
CPT/HCPCS: 87631

== ENCOUNTER 2024-09-14 08:21 | Outpatient (CLI) | payer MEDICARE, SELFPAY ==
--- OUTSIDE RECORDS SUMMARY | 2024-07-16 06:15 | XMS_ITS ---
Author Organization [facility] Address [address] [facility] [address] [place] [id number] Care Team Providers Care Roll Finisher Name Role Phone Paula Todd Primary Care Provider Kate Gong Unavailable [phone] Allergies Allergen (clinical drug ingredient) Drug/Non Drug Allergy documented on EMR Reaction Allergy Type Onset Date Status risedronate Actonel bone pain and muscle stiffness Drug Allergy Active cephalexin Cephalexin Unknown Drug Allergy Activ e doxycycline Doxycycline rash Drug Allergy Act cheyenne Levaquin rash Drug Allergy Active Nicotine rash Drug Allergy Active clindamycin Clindamycin rash Drug Allergy Act che[place] Substance with penicillin structure and antibacterial mechanism of action (substance) Penicillins anaphylactic Drug Allergy Active Substance with 6-vjpdxdp-3-methylg lutaryl-coenzyme A reductase inhibitor mechanism of action (substance) Statins Pain Drug Allergy Active Substance with sulfonamide structure and antibacterial mechanism of action (substance) Sulfa Antibiotics Unknown Drug Allergy Active tolmetin Tolmetin Unknown Drug Allergy Active Results Component Value Reference Range Notes CBC Fingerstick (in house) Reviewed date:07/16/2024 03:46:26 PM Interpretation: Performing Lab: Notes/Report: wbc 19.1 3.5 - 10 lym 26.8 15 - 50 mid 6.2 2 - 15 gran 67.0 35 - 80 rbc 4.63 3.5 - 5.5 hgb 14.6 11.5 - 16.5 hct 42.5 35 - 55 mcv 91.9 75 - 100 mch 31.5 25 - 35 mchc 34.3 31 - 38 plat 174 100 - 400 REASON FOR VISIT cough, white tongue Medications Medication SIG (Take, Route, Frequency, Duration) Notes Start Date End Date Status Zithromax Z-Gabriel 250 MG 2 pills first day then one daily for 4 days orally as directed; Duration: 5 days 07/16/2024 Activ e Vitamin B12 1000 MCG 1 tablet Orally Onc e a day; Duration: 30 day(s) Active Metoprolol Succinate ER 25 MG TAKE 1 TABLET TWICE DAILY; Duration: 90 Active Repatha 140 MG/ML as directed subcutan eously every 2 weeks Active Vitamin D3 50 MCG (2000 UT) as directed orally once a day; Duration: 30 day(s) 02/18/2019 Active metFORMIN HCl 500 MG 1 tab(s) Orally Two times a day Active dilTIAZem HCl ER Coated Beads 240 MG TAKE 1 CAPSULE EVERY DAY Orally Once a day; Duration: 7 days Active Triamcinolone Acetonide 0.1 % 1 application Externally Three times a day 06/10/2024 Active Zolpidem Tartrate 10 MG 1 tab(s) orally once a day (at bedtime); Duration: 30 days 07/05/2024 Active Triamterene-HCTZ 37.5-25 MG TAKE 1 TABLET EVERY DAY; Duration: 90 Active Potassium Chloride Kylah ER 20 MEQ TAKE 2 TABLETS EVERY MORNING, 1 TABLET AT NOON, AND 2 TABLETS AT BEDTIME DIRECTED; Duration: 90 Active Glimepiride 2 MG TAKE 1 TABLET ONE TI ME DAILY; Duration: 90 Active Levothyroxine Sodium 88 MCG TAKE 1 TABLET EVERY DAY; Duration: 90 Active DULoxetine HCl 60 MG 1 cap(s) orally once a day Active DULoxetine HCl 30 MG 1 capsule Orally On a day 05/11/2024 Active Metoclopramide HCl 5 MG 1/2 orally 3 francie es a day before meals; Duration: 30 day(s) 07/10/2021 Active Doxazosin Mesylate 1 MG 1 tablet Orally Once a day; Duration: 30 day(s) 08/19/2023 Active Align 4 MG 1 cap(s) orally once a day; Duration: 28 day(s) 11/18/2020 Active Social History Tobacco Use: Social History Observation Description Date Details (start date - stop date) Current Smoker NA - NA CURRENT TOBACCO USE: Question Answer Notes Are you a: current smoker quit smoking 2017, restarted 01/2020 1ppd Vital Signs Blood pressure systolic 110 mm Hg 07/17/19 25 Blood pressure diastolic 76 mm Hg 025 Heart Rate 88 /min 07/16/2024 Height 64.50 in 07/16/2024 Weight 149.4 lbs 07/16/2024 BMI 25.25 kg/m2 07/16/2024 Encounters Encounter Location Date Provider Diagnosis [facility] [address] [place] [id number] 07/16/2024 Kate Farideh Bronchitis J40 Assessments Encounter Date Diagnosis (ICD Code) Assessment Notes Treatment Notes Treatment Clinical Notes Section Notes 07/16/2024 Bronchitis (ICD-10 - J40) Patient has cough medication and an inhaler at home. Plan Of Treatment Medication Medication Name Sig Start Date Stop Date Notes Zithromax Z-Gabriel 250 MG 2 pills first day then one daily for 4 days orally as directed; Duration: 5 days 07/16/2024 Treatment Notes Assessment Notes Bronchitis Patient has cough me dication and an inhaler at home. Next Appt Details Follow Up: prn, Reason: Progress Notes * VERONIKAMARTHA REJIDOB:1950 (73 yo F)Acc No.[id number]:07/16/2024 Progress Notes Patient: REJI ESPINOSA Provider: DANE Gottlieb :1950 A ge:73 Y S ex:Female Date:07/16/2024 Address:[facility] [place], [id number] Pcp:Paula Todd Subjective: * Chief Complaints: * 1 . Cough, white tongue. * HPI: E NT/respiratory: 73 year old female presents with c/o cough P t sts she is here today with c/o having a cough for a week and does not feel well. . * ROS: D ERMATOLOGY: no R manfred. n o H miguel. G ASTROENTEROLOGY: no N ausea. n o V omiting. n o D iarrhea.? U ROLOGY: no D ifficulty urinating. n o B lood in urine. * Medical History: T ype 2 Diabetes, Hypertension, Hypothyroidism, Crohn's Disease, 2006, Hyperparathyroidism, Neg GXT, 12/29/2010. * Surgical History: A ppendectomy , Cholecystectomy , Total Hysterectomy , Bowel Obstruction , RT Knee Replacement , Bilateral Breast Cyst Removal , Pilonidal Cyst Removal , Top Teeth Pulled 01/19/2011, Heart Cath- [facility] 2017, dermoid cyst, left arm, Dr Muller 2022, ENT evaluation, Dr. Anderson 02/25/24. * Hospitalization/Major Diagno stic Procedure: H ospitalized 10/16/2005, Abdominal Pain- [facility] 05/08-01/2008, Abdominal Pain, Achey- [facility] 09/05-10/2007, Abdominal Pains, Diarrhea- [facility] , Anxiety Attack- [facility] ER 08/2009, Crohns 11/2010, Abdominal Pains 03/2012, Passed Out- [facility] 12/2013, Cough- [facility] 01/2018. * Family History: F ather: , WITH CANCER. M other: , CVA. Norberto roberts: son with special needs, MR. 2 son(s) , 1 daughter(s) . . * Social History: C URRENT TOBACCO USE A re you a: c urrent smoker quit smoking 01/2018, restarted 01/2020 1ppd. C affeine: yes, frequency:. Marital Status: . Past smoking status: yes, PPD: 1 , years: since age of 17 years ,determination:. Alcohol: no. * Medications: T aking Vitamin B12 1000 MCG Tablet Extended Release 1 tablet Orally Once a day , Taking Repatha 140 MG/ML Solution Prefilled Syringe as directed subcutaneously every 2 weeks , Taking Vitamin D3 50 MCG (2000 UT) Capsule as directed orally once a day , Taking Align 4 MG Capsule 1 cap(s) orally once a day , Taking Metoclopramide HCl 5 MG Tablet 1/2 orally 3 times a day before meals , Taking Doxazosin Mesylate 1 MG Tablet 1 tablet Orally Once a day , Taking Potassium Chloride Kylah ER 20 MEQ Tablet Extended Release TAKE 2 TABLETS EVERY MORNING, 1 TABLET AT NOON, AND 2 TABLETS AT BEDTIME DIRECTED , Taking Glimepiride 2 MG Tablet TAKE 1 TABLET ONE TIME DAILY , Taking Levothyroxine Sodium 88 MCG Tablet TAKE 1 TABLET EVERY DAY , Taking DULoxetine HCl 60 MG Capsule Delayed Release Particles 1 cap(s) orally once a day , Taking DULoxetine HCl 30 MG Capsule Delayed Release Sprinkle 1 capsule Orally Once a day , Taking metFORMIN HCl 500 MG Tablet 1 tab(s) Orally Two times a day , Taking dilTIAZem HCl ER Coated Beads 240 MG Capsule Extended Release 24 Hour TAKE 1 CAPSULE EVERY DAY Orally Once a day , Taking Triamcinolone Acetonide 0.1 % Cream 1 application Externally Three times a day , Taking Zolpidem Tartrate 10 MG Tablet 1 tab(s) orally once a day (at bedtime) , Taking Triamterene-HCTZ 37.5-25 MG Tablet TAKE 1 TABLET EVERY DAY , Taking Metoprolol Succinate ER 25 MG Tablet Extended Release 24 Hour TAKE 1 TABLET TWICE DAILY , Medication List reviewed and reconciled with the patient * Allergies: C lindamycin: rash, Sulfa Antibiotics, Cephalexin, Tolmetin, Levaquin: rash, Doxycycline: rash, Penicillins: anaphylactic, Nicotine: rash, Statins: Pain, Actonel: bone pain and muscle stiffness. Objective: * Vitals: W t: 149.4, Temp: 97.9, BP: 110/76, HR: 88, Nurse: willie, Ht: 64.50, BMI:25.25. * Examination: E NT/Respiratory: General Appearance: N AD. E ars: a uditory canals normal bilaterally, TM's WNL. N ose : t urbinates red , congested. S inuses : n on tender bilaterally. O ral cavity : e rythema without exudate on pharynx. N catherine : n o cervical lymphadenopathy. H eart : R RR, normal S1 S2, no murmurs. L ungs: e xpiratory wheezes, no rales. Assessment: * Assessment: 1. Lars ledesma - Juani (Primary) Plan: * Treatment: Value Reference Range w bc 19.1 3.5 - 10 * l ym 26.8 15 - 50 * m id 6.2 2 - 15 * g ran 67.0 35 - 80 * r bc 4.63 3.5 - 5.5 * h gb 14.6 11.5 - 16.5 * h ct 42.5 35 - 55 * m cv 91.9 75 - 100 * m ch 31.5 25 - 35 * m chc 34.3 31 - 38 * p lat 174 100 - 400 * Arlene Wallace 07/16/2024 10:1 5:43 AM > Provider reviewed results while patient in office. Notes: Patient has cough medication and an inhaler at home.?? * Procedure Codes: G 2211 Complex e/[place], [address] CAPILLARY BLOOD DRAW, 59369 CBC WITH AUTO DIFF * Follow Up: p rn * Images: Billing Information: * Visit Code: 01124 Office Visit, Est Pt., Level 3. * Procedure Codes: G2211 Complex e/[place]. [address] CAPILLARY BLOOD DRAW. 10861 CBC WITH AUTO DIFF. * Electronic signature of DANE Cobos on 09/14/2024 at 08:24 AM EDT Sign off status: Pending * Provider: DANE Gottlieb Date: 0 07/16/2024 Generated for Charlette travis/Brandi/Earlitting on: 0 09/14/2024 08:24 AM EDT History and Physical Notes * HPI (History of Present Illness) Category Sub-Category Detail Notes Category Not es ENT/respiratory cough Pt sts she is he re today with c/o having a cough for a week and does not feel well. Examination Category Sub-Category Detail Notes Category Not es ENT/Respiratory Oral cavity : erythema without exudate on pharynx Sinuses : non tender bilateral ly Ears: auditory canals norm al bilaterally, TM's WNL Neck : no cervical lymphade nopathy Heart : RRR, normal S1 S2, n o murmurs Lungs: expiratory wheezes, no rales General Appearance: NAD Nose : turbinates red , con gested
--- OUTSIDE RECORDS SUMMARY | 2024-08-12 06:30 | XMS_ITS ---
[facility] Address [address] [place] [id number] Care Team Providers Care Bullet Assembly Press Setter Operator Name Role Phone Paula Todd Primary Care Provider Kate Gong Unavailable [phone] Allergies Allergen (clinical drug ingredient) Drug/Non Drug [...] Penicillins anaphylactic Drug Allergy Active Substance with 0-pjpysvj-5-methylg lutaryl-coenzyme A reductase inhibitor mechanism of action (substance) Statins Pain Drug Allergy Active Substance with sulfonamide structure and antibacterial mechanism of action (substance) Sulfa Antibiotics Unknown Drug Allergy Active tolmetin Tolmetin Unknown Drug Allergy Active Reason For Referral Diagnosis 1 Chronic depression ( F32.A) [facility] Referring Provider First Name Kate Referring Provider Last Name Farideh Referring Provider Speciality Physician Coremaking Machine Setter Referred Provider Psychologist, .. Referred Provider Specialty Psychology General Notes Kate Gong 01/2025 11:12:28 AM >Pt needs an appt with Crystal Herrera. Referral Priority Routine REASON FOR VISIT not feeling well, losing weight Medications Medication SIG (Take, Route, Frequency, Duration) Notes Start Date End Date Status Repatha 140 MG/ML as directed subcutan eously every 2 weeks Active Glimepiride 2 MG TAKE 1 TABLET ONE TI ME DAILY; Duration: 90 Active Omeprazole 40 MG TAKE 1 CAPSULE EVERY DAY; Duration: 90 Active Levothyroxine Sodium 88 MCG TAKE 1 TABLET EVERY DAY; Duration: 90 Active Vitamin B12 1000 MCG 1 tablet Orally Onc e a day; Duration: 30 day(s) Active Zolpidem Tartrate 10 MG 1 tab(s) orally once a day (at bedtime); Duration: 30 days 07/05/2024 Active Triamterene-HCTZ 37.5-25 MG TAKE 1 TABLET EVERY DAY; Duration: Active Metoprolol Succinate ER 25 MG TAKE 1 TABLET TWICE DAILY; Duration: Active Albuterol Sulfate HFA 108 (90 Base) MCG/ACT 1 to 2 puffs as needed Inhalation every 4 hrs; Duration: 30 days 07/16/2024 Active Triamcinolone Acetonide 0.1 % 1 application Externally Three times a day 06/10/2024 Active DULoxetine HCl 60 MG 1 cap(s) orally once a day Active DULoxetine HCl 30 MG 1 capsule Orally On ce a day 05/11/2024 Active metFORMIN HCl 500 MG 1 tab(s) Orally Two times a day Active dilTIAZem HCl ER Coated Beads 240 MG TAKE 1 CAPSULE EVERY DAY Orally Once a day; Duration: 7 days Active Vitamin D3 50 MCG (2000 UT) as directed orally once a day; Duration: 30 day(s) 02/18/2019 Active Align 4 MG 1 cap(s) orally once a day; Duration: 28 day(s) 11/18/2020 Active Metoclopramide HCl 5 MG 1/2 orally 3 francie es a day before meals; Duration: 30 day(s) 07/10/2021 Active Doxazosin Mesylate 1 MG 1 tablet Orally Once a day; Duration: 30 day(s) 08/19/2023 Active Potassium Chloride Kylah ER 20 MEQ TAKE 2 TABLETS EVERY MORNING, 1 TABLET AT NOON, AND 2 TABLETS AT BEDTIME DIRECTED; Duration: 90 Active Abilify 2 MG 1 tablet Orally Once a day at night; Duration: 30 days 08/12/2024 Active Social History Tobacco Use: Social History Observation Description Date Details (start date - stop date) Current Smoker NA - NA CURRENT TOBACCO USE: Question Answer Notes Are you a: current smoker quit smoking 2017, restarted 01/2020 1ppd Problems Problem Type SNOMED Code ICD Code Onset Dates Problem Status W/U Status Risk Notes Problem Anxiety (47072509) Anxiety (F41.9) Active confirmed Vital Signs Blood pressure systolic 132 mm Hg 08/13/19 25 Blood pressure diastolic 90 mm Hg 025 Heart Rate 80 /min 08/12/2024 Height 64.50 in 08/12/2024 Weight 149.4 lbs 08/12/2024 BMI 25.25 kg/m2 08/12/2024 Encounters Encounter Location Date Provider Diagnosis [facility] [address] [place], [place] [id number] 08/12/2024 Kate Gong Chronic depression F32.A ; Anxiety F41.9 ; Non-recurrent acute serous otitis media of left ear H65.02 and BMI 25.0-25.9,adult Z68.25 Assessments Encounter Date Diagnosis (ICD Code) Assessment Notes Treatment Notes Treatment Clinical Notes Section Notes 08/12/2024 Chronic depression (ICD-10 - F32.A) Will make referral to psychiatry. Will also start on a low dose of abilify. She will hold her ambien while taking the abilify. eric 08/12/2024 Anxiety (ICD-10 - F41.9) eric 08/12/2024 Non-recurrent acute serous otitis media of left ear (ICD-10 - H65.02) Can use flonase and OTC antihistamine of choice. eric 08/12/2024 BMI 25.0-25.9,adult (ICD-10 - Z68.25) eric Plan Of Treatment Medication Medication Name Sig Start Date Stop Date Notes Abilify 2 MG 1 tablet Orally Once a day at night; Duration: 30 days 08/12/2024 Treatment Notes Assessment Notes Chronic depression Will make referral t o psychiatry. Will also start on a low dose of abilify. She will hold her ambien while taking the abilify. Non-recurrent acute serous o titis media of left ear Can use flonase and OTC antihistamine of choice. Referrals Referral Date Details 08/12/2024 08/12/2024, .. Psych ologist Next Appt Details Follow Up: 2 Weeks, Reason: Progress Notes * SRIRAM HAWLEY:1950 (73 yo F)Acc No.[id number]:08/12/2024 Progress Notes Patient: REJI ESPINOSA Provider: DANE Gottlieb :1950 A ge:73 Y S ex:Female Date:08/12/2024 Address:[place], [id number] Pcp:Paula Todd Subjective: * Chief Complaints: * 1 . Not feeling well, losing weight. * HPI: C onstitutional: The pt is here today with c/o fatigue and weight loss. Pt states her appetite is not very good. Pt states she feels stressed out all the time. Pt states she is having some popping in the left ear and left side of her face when she wakes up in the mornings. 73 year old female presents with c/o weight loss. c/o fatigue. * ROS: D ERMATOLOGY: no R manfred. n o H miguel. G ASTROENTEROLOGY: no N ausea. n o V omiting. n o D iarrhea.? U ROLOGY: no D ifficulty urinating. n o B lood in urine. * Medical History: T ype 2 Diabetes, Hypertension, Hypothyroidism, Crohn's Disease, 2005, Hyperparathyroidism, Neg GXT, 12/29/2010. * Surgical History: A ppendectomy , Cholecystectomy , Total Hysterectomy , Bowel Obstruction , RT Knee Replacement , Bilateral Breast Cyst Removal , Pilonidal Cyst Removal , Top Teeth Pulled 01/19/2011, Heart Cath- [facility] 2017, dermoid cyst, left arm, Dr Muller 2022, ENT evaluation, Dr. Anderson 02/25/24. * Hospitalization/Major Diagno stic Procedure: H ospitalized 10/16/2005, Abdominal Pain- [facility] 05/08-01/2008, Abdominal Pain, Achey- [facility] 09/05-10/2007, Abdominal Pains, Diarrhea- [facility] , Anxiety Attack- [facility] ER 08/2009, Crohns 11/2010, Abdominal Pains 03/2012, Passed Out- [facility] 12/2013, Cough- [facility] 01/2018. * Family History: F ather: , [...] 2 TABLETS AT BEDTIME DIRECTED , Taking DULoxetine HCl 60 MG Capsule [...] Hour TAKE 1 TABLET TWICE DAILY , Taking Albuterol Sulfate HFA 108 (90 Base) MCG/ACT Aerosol Solution 1 to 2 puffs as needed Inhalation every 4 hrs , Taking Glimepiride 2 MG Tablet TAKE 1 TABLET ONE TIME DAILY , Taking Omeprazole 40 MG Capsule Delayed Release TAKE 1 CAPSULE EVERY DAY , Taking Levothyroxine Sodium 88 MCG Tablet TAKE 1 TABLET EVERY DAY , Discontinued Zithromax Z-Gabriel 250 MG Tablet 2 pills first day then one daily for 4 days orally as directed , Medication List reviewed and reconciled with the patient * Allergies: C lindamycin: rash, Sulfa Antibiotics, Cephalexin, Tolmetin, Levaquin: rash, Doxycycline: rash, Penicillins: anaphylactic, Nicotine: rash, Statins: Pain, Actonel: bone pain and muscle stiffness. Objective: * Vitals: W t: 149.4, Temp: 97.5, BP: 132/90, HR: 80, Nurse: MAITE, Ht: 64.50, BMI:25.25. * Examination: G eneral Examination: General Appearance: N AD. H EENT: L eft TM with effusion, no erythema. O ral cavity: n o lesions, mucosa moist and WNL, no erythema. N catherine: s upple, no lymphadenopathy. C hest: n ormal shape and expansion. H eart: R SR. L ungs: c lear to auscultation. A bdomen: b owel sounds present, soft and nontender. N eurologic Exam: I ntact, gait normal. S kin: n ormal, no rash. P eripheral pulses: n ormal (2+) bilaterally. E xtremities: n o leg edema. P sychology: Grooming : a dequate. E ye contact : n ormal. M ood : d epressed. Assessment: * Assessment: 1. C hronic depression - F32.A (Primary) 2 . A nxiety - F41.9 ?3. N on-recurrent acute serous otitis media of left ear - H65.02 4 . B MT 25.0-25.9,adult - Z68.25 eric Plan: * Treatment: 2. N on-recurrent acute serous otitis media of left ear Notes: Can use flonase and OTC antihistamine of choice. * Procedure Codes: G 2211 Complex e/m visit add on, G8420 BMI<30 AND >=22 CALC & DOCU, G8752 MOST RECENT SYSTOLIC BP < 140MM HG, G8755 MOST RECENT DIASTOLIC BP >= 90MM HG * Follow Up: 2 Weeks * Images: Billing Information: * Visit Code: 11702 Office Visit, Est Pt., Level 4. * Procedure Codes: G2211 Complex e/m visit add on. G8420 BMI<30 AND >=22 CALC & DOCU. G8752 MOST RECENT SYSTOLIC BP < 140MM HG. G8755 MOST RECENT DIASTOLIC BP >= 90MM HG. * Electronic signature of DANE Cobos on 09/14/2024 at 08:24 AM EDT Sign off status: Pending * Provider: DANE Gottlieb Date: 08/12/2024 Generated for Printi ng/Faxing/eTransmitting on: 09/14/2024 08:24 AM EDT History and Physical Notes * HPI (History of Present Illness) Category Sub-Category Detail Notes Category Not es Constitutional weight loss fatigue Examination Category Sub-Category Detail Notes Category Not es General Examination HEENT: Left TM with effusion , no erythema Heart: RSR Lungs: clear to auscultatio n Abdomen: bowel sounds present , soft and nontender Extremities: no leg edema General Appearance: NAD Skin: normal, no rash Neurologic Exam: Intact, gait normal Neck: supple, no lymphaden opathy Oral cavity: no lesions, mucosa m oist and WNL, no erythema Peripheral pulses: normal (2+) bilatera lly Chest: normal shape and exp ansion Psychology Grooming : adequate Eye contact : normal Mood : depressed Consultation Request Notes Referral Date Referring Provider Referred Provider Not es 08/12/2024 Kate Gong Psychologist, ..
--- OUTSIDE RECORDS SUMMARY | 2024-08-24 04:13 | XMS_ITS ---
[facility] Address [address] [facility] [address] [facility] [address] [place] [id number] Care Team Providers Care Figure Clerk Name Role Phone Paula Todd Primary Care Provider REASON FOR VISIT due mamm, bone density & colonoscopy Encounters Encounter Location Date Provider Diagnosis [facility] [address] [facility] [address] [facility] [address] [place] [id number] 08/24/2024 Paula Todd Screening for breast cancer Z12.39 and Screening for osteoporosis Z13.820 Assessments Encounter Date Diagnosis (ICD Code) Assessment Notes Treatment Notes Treatment Clinical Notes Section Notes 08/24/2024 Screening for breast cancer (ICD-10 - Z12.39) 08/24/2024 Screening for osteoporosis (ICD-10 - Z13.820) Plan Of Treatment Pending Test Test Name Order Date Bone density 08/24/2024 Mammogram 08/24/2024 Progress Notes * REJI HAWLEYDOB:1950 (73 yo F)Acc No.[id number]:08/24/2024 Patient: REJI ESPINOSA :1950 A ge:73 Y S ex:Female Address:[place] [address] Subjective: * Chief Complaints: * D ue mamm, bone density & colonoscopy * Medical History: * Surgical History: * Hospitalization/Major Diagno stic Procedure: * Medications: Objective: * Vitals: * Physical Examination: Assessment: * Assessment: 1. S creening for breast cancer - Z12.39 (Primary) 2 . S creening for osteoporosis - Z13.820 Plan: * Treatment: 2.?Screening for osteoporosis?Imaging: Bone density* Bhavana Dueñas 08/24/2024 11:3 4:19 AM EDT >sent order to Karlee trammell referral to Karlee Ornelas 08/24/2024 11:47:37 AM EDT >faxed to [facility] Scheduling * Procedure Codes: * true * Date: Generated for Charlette tarvis/Brandi/Earlitting on: 0 09/14/2024 08:24 AM EDT
--- NOTE | 2024-09-14 08:25 | MM_ITS ---
PROCEDURE INFORMATION: Exam: MG Bilateral Screening 3D Mammography Exam date and time: 09/14/2024 8:28 AM Age: 73 years old Clinical indication: Screening examination TECHNIQUE: Imaging protocol: Bilateral Screening tomosynthesis and 2D mammography including computer-aided detection (CAD) when performed. COMPARISON: 1. MG MM DIG SCREENING MAMM BI W/CAD 07/03/2023 3:02 PM 2. MG MM DIG SCREENING MAMM BI W/CAD 07/02/2022 9:13 AM FINDINGS: MAMMOGRAPHY: Breast composition: There are scattered areas of fibroglandular density. Mass: None. Architectural distortion: None. Calcifications: No suspicious calcifications. Asymmetric density: None. Skin thickening: None. Axillary adenopathy: None. IMPRESSION: No mammographic evidence of malignancy. Annual screening is recommended unless otherwise clinically indicated. ASSESSMENT: BI-RADS Category 1: Negative.
--- NOTE | 2024-09-14 08:25 | XR_ITS ---
FINAL REPORT TECHNIQUE: Bone densitometry calculations of the lumbar spine and left hip were obtained. CLINICAL HISTORY: SCREENING COMPARISON: 07/02/2022 FINDINGS: Using L1-4, the bone mineral density of the spine is 0.891 g/cm2, corresponding to T-score of -1.4. Using the left hip, the bone mineral density of the femoral neck is 0.838 g/cm2, corresponding to a T-score of -0.9. Using the right hip, the bone mineral density of the femoral neck is 0.760 g/cm2, corresponding to a T-score of -0.8. NOTE: T-score: Standard deviation compared with peak bone mass of young adult mean. *Following the recommendations of the International Society of Bone densitometry, classification of hip BMD is based on the lower of two T-scores; total hip or femoral neck. NOTE: T-score: Standard deviation compared with peak bone mass of young adult mean. *Following the recommendations of the International Society of Bone densitometry, classification of hip BMD is based on the lower of two T-scores; total hip or femoral neck. IMPRESSION: Diminished bone mineral density of the lumbar spine consistent with osteopenia. Normal bone mineral density of the bilateral hips. Reviewed, Interpreted and Dictated by Carmen Devine MD Transcribed by Madhavi Miles Authenticated and [facility]
--- OUTSIDE RECORDS SUMMARY | 2024-09-14 08:25 | XMS_ITS | Patient Health Record ---
Author Organization [facility] Address [address] [place] [id number] Care Team Providers Care Insurance Processing Clerk Name Role Phone Paula Todd Primary Care Provider [phone] Kate Gong Unavailable [phone] Allergies Allergen (clinical drug ingredient) Drug/Non Drug [...] Penicillins anaphylactic Drug Allergy Active Substance with 6-gpyqobd-1-methylg lutaryl-coenzyme A reductase inhibitor mechanism of action [...] - 38 plat 174 100 - 400 P-Comprehensive Metabolic Pa amberly (CMP) Reviewed date:12/02/2023 11:34:07 AM Interpretation:Na 147, gluc 163, Ca 10.6, 12/12/23 OV f/u Performing Lab: Notes/Report: Test performed by [facility] [address] , [address], [place] [address] Franck Vega MD, [employer] CLIA: [id number] Sodium 147 135-145 mmol/L Potassium 4.1 3.5-5.3 mmol/L Chloride 106 97-108 mmol/L CO2 28 22-32 mmol/L Glucose 163 65-99 mg/dL BUN 17 8-23 mg/dL Creatinine 0.91 0.50-1.00 mg/dL Calcium 10.6 8.6-10.4 mg/dL eGFR by Creatinine 67 >59 mL/min/1.73m2 Protein 6.9 6.0-8.3 g/dL Albumin 4.5 3.5-5.3 g/dL Alkaline Phosphatase 104 35-121 IU/L ALT (SGPT) 17 <5-47 IU/L AST (SGOT) 18 <5-40 IU/L Bilirubin, Total <0.2 <0.2-1.2 mg/dL A/G Ratio 1.9 1.1-2.5 P-TSH Reviewed date:12/02/2023 11:34:07 AM Interpretation:Normal Performing Lab: Notes/Report: Test performed by [facility] [address] [place] [address] , [address], [place] [address] Franck Vega MD, Grain Grader CLIA: [id number] TSH 0.77 0.43-5.25 mU/L CT scan : Neck soft tissue w ith contrast Reviewed date:12/17/2023 04:09:28 PM Interpretation:see 12/16/2023 OV Performing Lab: Notes/Report: see 12/16/2023 OV Estimated Average Glucose Reviewed date:06/11/2024 09:01:14 AM Interpretation:Normal Performing Lab: Notes/Report: Test performed by [facility] [address] [place] [address] , [address], [place] [address] Franck Vega MD, G[employer] CLIA: [id number] Estimated Average Glucose (eAG) 140 Estimated Average Glucose (eAG) is calculated using the equation eAG = (28.7 x HbA1c) - 46.7 based on the guidelines established by the ADA. If the patient has certain diseases including kidney disease, sickle cell anemia, thalassemia, or is taking medications such as dapsone, erythropoietin, or iron, eAG should not be evaluated. CBC Venipuncture (in house) Reviewed date:06/11/2024 09:01:14 AM Interpretation:wbc 11.4 Performing Lab: Notes/Report: wbc 11.4 wbc 11.4 3.5 - 10 lymph 25.3% 15 - 50 mid 7.0% 2 - 15 gran 67.7% 35 - 80 rbc 4.27 3.5 - 5.5 hgb 13.4 11.5 - 16.5 hct 40.1 35 - 55 mcv 93.9 75 - 100 mch 31.4 25 - 35 mchc 33.4 31 - 38 platlet 249 100 - 400 P-Vitamin B12 Reviewed date:06/11/2024 09:01:14 AM Interpretation:Normal Performing Lab: Notes/Report: Test performed by [facility] [address] [place] [address] , [address] , [place] [address] Franck Vega MD, Grain [employer]ader CLIA: [id number] Vitamin B12 1009 983-3084 pg/mL P-Comprehensive Metabolic Pa amberly (CMP) Reviewed date:06/11/2024 09:01:14 AM Interpretation:Normal Performing Lab: Notes/Report: Test performed by [facility] [address] [place] [address] , [place] [address] Franck Vega MD, Grain Grader CLIA: [id number] Sodium 143 135-145 mmol/L Potassium 4.4 3.5-5.3 mmol/L Chloride 106 97-108 mmol/L CO2 27 22-32 mmol/L Glucose 99 65-99 mg/dL BUN 22 8-23 mg/dL Creatinine 0.91 0.50-1.00 mg/dL Calcium 10.1 8.6-10.4 mg/dL eGFR by Creatinine 66 >59 mL/min/1.73m2 Protein 6.8 6.0-8.3 g/dL Albumin 4.2 3.5-5.3 g/dL Alkaline Phosphatase 99 35-121 IU/L ALT (SGPT) 13 <5-47 IU/L AST (SGOT) 15 <5-40 IU/L Bilirubin, Total <0.2 <0.2-1.2 mg/dL A/G Ratio 1.6 1.1-2.5 P-T4 Free (thyroxine) Reviewed date:06/11/2024 09:01:14 AM Interpretation:Normal Performing Lab: Notes/Report: Test performed by [facility] [address] , [place] [address] Franck Vega MD, Grain Grader CLIA: [id number] Thyroxine Free (free T4) 1.23 0.86-1.76 ng/dL P-Hemoglobin A1C Reviewed date:06/11/2024 09:01:14 AM Interpretation:6.5% Performing Lab: Notes/Report: Test performed by [facility] [address] , [facility] [place] [address] Franck Vega MD, Grain [employer]ader CLIA: [id number] Hemoglobin A1C 6.5 <5.7 % The following HbA1c ranges recommended by the [place] [employer] (ADA) may be used as an aid in the diagnosis of diabetes mellitus. HbA1c Suggested Diagnosis >=6.5% Diabetic 5.7% - 6.4% Pre-Diabetic <5.7% Non-Diabetic P-TSH Reviewed date:06/11/2024 09:01:14 AM Interpretation:0.25 Performing Lab: Notes/Report: Test performed by [facility] [address] [place] [address] , [place] [address] Franck Vega MD, Grain Grader CLIA: [id number] TSH 0.25 0.43-5.25 mU/L P-Vitamin D 25-Hydroxy Reviewed date:06/11/2024 09:01:14 AM Interpretation:Normal Performing Lab: Notes/Report: Test performed by [facility] [address] [place] [address] , [address], [place] [address] Franck Vega MD, Grain Grader CLIA: [id number] Vitamin D 25-Hydroxy 54.9 30.0-100.0 ng/mL Interpretation of Vitamin D 25 [place]: < 20 ng/mL - Deficiency 20 - 29 ng/mL - Insufficiency 30 - 100 ng/mL - Sufficiency > 100 ng/mL - Super-therapeutic- toxicity may occur above this level. Clinical correlation required. CBC Fingerstick (in house) Reviewed date:05/11/2024 03:05:56 PM Interpretation: Performing Lab: Notes/Report: wbc 11.6 3.5 - 10 lym 33.8% 15 - 50 mid 7.2% 2 - 15 gran 59.0% 35 - 80 rbc 4.42 3.5 - 5.5 hgb 13.8 11.5 - 16.5 hct 40.6 35 - 55 mcv 91.8 75 - 100 mch 31.3 25 - 35 mchc 34.0 31 - 38 plat 248 100 - 400 CBC Fingerstick (in house) Reviewed date:05/11/2024 03:05:56 PM Interpretation: Performing Lab: Notes/Report: wbc 11.6 3.5 - 10 lym 33.8% 15 - 50 mid 7.2% 2 - 15 gran 59.0% 35 - 80 rbc 4.42 3.5 - 5.5 hgb 13.8 11.5 - 16.5 hct 40.6 35 - 55 mcv 91.8 75 - 100 mch 31.3 25 - 35 mchc 34.0 31 - 38 plat 248 100 - 400 Glycohemoglobin A1c (in hous e) Reviewed date:05/12/2024 08:39:44 AM Interpretation:6.0% Performing Lab: Notes/Report: 6.0% glycohemoglobin 6.0% 5 - 6.5 % P-Comprehensive Metabolic Pa amberly (CMP) Reviewed date:05/12/2024 08:39:44 AM Interpretation:bun 27, Cr 1.35, Ca 10.9, gfr 41 Performing Lab: Notes/Report: Test performed by [facility] [address] [place] [address] , [address], [place] [address] Franck Vega MD, Grain Grader CLIA: [id number] Sodium 143 135-145 mmol/L Potassium 4.5 3.5-5.3 mmol/L Chloride 104 97-108 mmol/L CO2 26 22-32 mmol/L Glucose 96 65-99 mg/dL BUN 27 8-23 mg/dL Creatinine 1.35 0.50-1.00 mg/dL Calcium 10.9 8.6-10.4 mg/dL eGFR by Creatinine 41 >59 mL/min/1.73m2 Protein 7.1 6.0-8.3 g/dL Albumin 4.6 3.5-5.3 g/dL Alkaline Phosphatase 100 35-121 IU/L ALT (SGPT) 11 <5-47 IU/L AST (SGOT) 18 <5-40 IU/L Bilirubin, Total 0.3 <0.2-1.2 mg/dL A/G Ratio 1.8 1.1-2.5 Urinalysis - Inhouse Reviewed date:05/12/2024 08:37:49 AM Interpretation: Performing Lab: Notes/Report: Color/Clarity yellow Leuk trace Nitrite neg Urobili 3.2 Protein neg pH 6.0 Blood neg Sp. Gr. 1.020 Ketone neg Bili neg Gluc neg Influenza Screen (in house) Reviewed date:05/27/2024 11:02:30 PM Interpretation: Performing Lab: Notes/Report: results Neg CBC Fingerstick (in house) Reviewed date:06/03/2024 02:54:33 PM Interpretation:no record testing performed Performing Lab: Notes/Report: no record testing performed Covid test (in house) Reviewed date:05/27/2024 11:02:30 PM Interpretation: Performing Lab: Notes/Report: Result: Neg H-URI Panel-mini (Rhino,flu A/B, RSV, Covid) Reviewed date:05/27/2024 11:04:34 PM Interpretation: Performing Lab: Notes/Report: RHINOPCR Not Detected NotDetected INFLUAPCR Not Detected NotDetected INFLUB Not Detected NotDetected RSVPCR Not Detected NotDetected COVIDHMH Not Detected NotDetected Effective 10/25/20, Positive covid results will no longer be called to the ordering physician. Infection control and the physician?s office will continue to report positive covid results to the local Health Department as required. This assay is for in vitro diagnostic use under FDA Emergency Use Authorization only. Negative results do not preclude infection with SARS CoV 2 virus and should not be the sole basis of a patient treatment/management or public health decision. Follow up testing should be performed according to the current CDC recommendations. Medications Medication SIG (Take, Route, Frequency, Duration) Notes Start Date End Date Status DULoxetine HCl 60 MG 1 cap(s) orally onc e a day; Duration: 90 days Active DULoxetine HCl 30 MG 1 capsule Orally On ce a day; Duration: 90 days 05/11/2024 Active Triamcinolone Acetonide 0.1 % 1 application Externally Three times a day 06/10/2024 Active Repatha 140 MG/ML as directed subcutan eously every 2 weeks Active Zolpidem Tartrate 10 MG 1 tab(s) orally once a day (at bedtime); Duration: 30 days 07/05/2024 Active Vitamin D3 50 MCG (2000 UT) as directed orally once a day; Duration: 30 day(s) 02/18/2019 Active Triamterene-HCTZ 37.5-25 MG TAKE 1 TABLET EVERY DAY; Duration: 90 Active Align 4 MG 1 cap(s) orally once a day; Duration: 28 day(s) 11/18/2020 Active Metoprolol Succinate ER 25 MG TAKE 1 TABLET TWICE DAILY; Duration: 90 Active Metoclopramide HCl 5 MG 1/2 orally 3 francie es a day before meals; Duration: 30 day(s) 07/10/2021 Active Abilify 2 MG 1 tablet Orally Once a day at night; Duration: 30 days 08/12/2024 Active Doxazosin Mesylate 1 MG 1 tablet Orally Once a day; Duration: 30 day(s) 08/19/2023 Active Albuterol Sulfate HFA 108 (90 Base) MCG/ACT 1 to 2 puffs as needed Inhalation every 4 hrs; Duration: 30 days 07/16/2024 Active Potassium Chloride Kylah ER 20 MEQ TAKE 2 TABLETS EVERY MORNING, 1 TABLET AT NOON, AND 2 TABLETS AT BEDTIME DIRECTED; Duration: 90 Active Glimepiride 2 MG TAKE 1 TABLET ONE TI ME DAILY; Duration: 90 Active Omeprazole 40 MG TAKE 1 CAPSULE EVERY DAY; Duration: 90 Active Levothyroxine Sodium 88 MCG TAKE 1 TABLET EVERY DAY; Duration: 90 Active metFORMIN HCl 500 MG 1 tab(s) Orally Two times a day Active dilTIAZem HCl ER Coated Beads 240 MG TAKE 1 CAPSULE EVERY DAY Orally Once a day; Duration: 7 days Active Vitamin B12 1000 MCG 1 tablet Orally Onc e a day; Duration: 30 day(s) Active Immunizations Vaccine Route Administration Date Status Comme nts Prevnar (PCV13) IM Intramuscular 05/07/2018 Administered PNEUMOVAX 23 VACCINE IM Intramuscular 12/28/2020 Administe red Hepatitis B (20 and more) Unknown 11/21/1998 Administer ed Hepatitis B (20 and more) Unknown 12/21/1998 Administer ed Hepatitis B (20 and more) Unknown 05/29/1999 Administer ed Fluzone High Dose (65yr and older) IM Intramuscular 05/07/2018 Administered Fluzone High Dose (65yr and older) IM Intramuscular 12/28/2020 Administered Fluzone High Dose (65yr and older) IM Intramuscular 01/17/2023 Administered Fluzone High Dose (65yr and older) IM Intramuscular 03/06/2024 Administered DT, 7 YEARS OR OLDER Unknown 06/04/1996 Administered COVID 19 Marilee Unknown 05/11/2020 Administered COVID 19 Marilee Unknown 02/22/2021 Administered Social History Tobacco Use: Social History Observation Description Date Details (start date - stop date) Current Smoker NA - NA CURRENT TOBACCO USE: Question Answer Notes Are you a: current smoker quit smoking 2017, restarted 01/2020 1ppd Problems Problem Type SNOMED Code ICD Code Onset Dates Problem Status W/U Status Risk Notes Problem Crohn's disease (04425393) Crohn's disease (555.9) Active confirmed Problem Tobacco abuse (5160531885) Tobacco abuse (Z72.0) Active confirmed Problem Vitamin D deficiency (45920298) Vitamin D deficiency (E55.9) Active confirmed Problem Vitamin B12 deficiency (465788124) Vitamin B12 deficiency (E53.8) Active confirmed Problem Essential hypertension (21226375) Essential hypertension (I10) Active confirmed Problem Anxiety (53817840) Anxiety (F41.9) Active confi rmed Problem Osteopenia (428018529) Osteopenia (M85.80) Active confirmed Problem Myalgia (75292542) Myalgia (M79.1) Active confi rmed Problem Mixed anxiety and depressive disorder (702903557) Depression with anxiety (F41.8) Active confirmed Problem Bandemia (782219108) Bandemia (D72.825) Active confirmed Problem Primary insomnia (2325979) Primary insomnia (F51.01) Active confirmed Problem Sacrococcygeal disorders, not elsewhere classified (M53.3) Active confirmed Problem Postmenopausal state (98521487) Post-menopausal (Z78.0) Active confirmed Problem Gastroesophageal reflux disease (698158318) GERD without esophagitis (K21.9) Active confirmed Problem Chronic pain (61794318) Other chronic pain (G89.29) Active confirmed Problem Type II diabetes mellitus without complication (305321739) Type 2 diabetes mellitus without complication (E11.9) Active confirmed Problem Acquired hypothyroidism (005470926) Acquired hypothyroidism (E03.9) Active confirmed Problem Reactive depression (situational) (90692463) Situational depression (F43.21) Active confirmed Problem Obstructive sleep apnea syndrome (76967022) Obstructive sleep apnea syndrome (G47.33) Active confirmed Problem Lower abdominal pain (16130708) Lower abdominal pain (R10.30) Active confirmed Problem Gastroesophageal reflux disease (889738263) Gastroesophageal reflux disease, esophagitis presence not specified (K21.9) Active confirmed Problem Syncope and collapse (121856827) Syncope, unspecified syncope type (R55) Active confirmed Problem Hyperlipidaemia (33984843) Hyperlipidemia, unspecified hyperlipidemia type (E78.5) Active confirmed Problem Dysphagia (29936480) Dysphagia, unspecified type (R13.10) Active confirmed Problem Acute low back pain (finding) (767104118) Acute midline low back pain without sciatica (M54.5) Active confirmed Problem Oropharyngeal dysphagia (17721292) Oropharyngeal dysphagia (R13.12) Active confirmed Problem Thyromegaly (5448048) Thyromegaly (E01.0) Active confirmed Problem Personal history of tobacco use (Z87.891) Active confirmed Problem History of pneumonia (023905520) History of pneumonia (Z87.01) Active confirmed Problem Fibrocystic breast changes (39051373) Fibrocystic breast disease (FCBD), unspecified laterality (N60.19) Active confirmed Problem Dysfunction of left eustachian tube (6123699356214549) Dysfunction of left eustachian tube (H69.82) Active confirmed Problem Radiology result abnormal (208788908) Abnormal chest CT (R93.89) Active confirmed Problem Presbycusis (61899578) 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 (H91.12) Active confirmed Problem Essential hypertension (37767687) Poorly-controlled hypertension (I10) Active confirmed Problem Low back pain (931692236) Acute midline low back pain, unspecified whether sciatica present (M54.5) Active confirmed Vital Signs Heart Rate 80 /min 08/12/2024 Blood pressure diastolic 90 mm Hg 08/12/2024 Height 64.50 in 08/12/2024 Blood pressure systolic 132 mm Hg 08/12/2024 Weight 149.4 lbs 08/12/2024 BMI 25.25 kg/m2 08/12/2024 Encounters Encounter Location Date Provider Diagnosis [facility] [address] [place] [id number] 11/28/2023 Paula Todd Oropharyngeal dyspha brady R13.12 ; Thyromegaly E01.0 ; Essential hypertension I10 ; Type 2 diabetes mellitus without complication E11.9 and Depression with anxiety F41.8 [facility] [address] [id number] 12/12/2023 Paula Todd Thyromegaly E01.0 [facility] [address] [place] [id number] 02/20/2024 Kate Crowdy Mid back pain M54.9 ; Acute midline low back pain without sciatica M54.50 ; Depression with anxiety F41.8 and Dysphagia, unspecified type R13.10 [facility] [address] [place] [address] [place] [id number] 03/06/2024 Paula Todd Type 2 diabetes rabia itus without complication E11.9 ; Chronic constipation K59.09 ; Vitamin B12 deficiency E53.8 ; Situational depression F43.21 ; Essential hypertension I10 ; Tobacco abuse Z72.0 and Encounter for immunization Z23 [facility] [address] [place] [id number] 05/11/2024 Paula Todd Type 2 diabetes rabia itus without complication E11.9 ; Situational depression F43.21 ; Lower abdominal pain R10.30 and Tobacco abuse Z72.0 [facility] [address] [place] [id number] 05/27/2024 Kate Crowdy Shortness of breath R06.02 ; Recurrent headache R51.9 ; Exposure to the flu Z20.828 and Elevated blood pressure reading R03.0 [facility] [address] [place], [place] [id number] 06/10/2024 Kate Farideh Type 2 diabetes rabia itus without complication E11.9 ; Essential hypertension I10 ; Acquired hypothyroidism E03.9 ; Vitamin B12 deficiency E53.8 ; Depression with anxiety F41.8 ; Weight loss R63.4 ; Gastroesophageal reflux disease, esophagitis presence not specified K21.9 ; Rash R21 ; Vitamin D deficiency E55.9 and BMI 25.0-25.9,adult Z68.25 [facility] [address] [place], [place] [id number] 07/16/2024 Kate Crowbruna Bronchitis J40 [facility] [address] [place], [place] [id number] 08/12/2024 Kate Gong Chronic depression F 32.A ; Anxiety F41.9 ; Non-recurrent acute serous otitis media of left ear H65.02 and BMI 25.0-25.9,adult Z68.25 [facility] [address] [place], [place] [id number] 12/16/2023 Paula Todd Oropharyngeal dyspha brady R13.12 [facility] [address] [place] [id number] 10/30/2023 J Manan Todd Primary insomnia F51 .01 [facility] [address] [place] [id number] 12/02/2023 Paula Todd [facility] [address] [place], [place] [id number] 02/14/2024 Paula Todd [facility] [address] [place] [id number] 03/03/2024 J Manan Todd Primary insomnia F51 .01 [facility] [address] [facility] [address] [place] [id number] 05/12/2024 Paula Todd [facility] [address] [place] [id number] 05/27/2024 Kate [facility] [address] [place], [place] [id number] 06/11/2024 Kate Gong [facility] [address] [place] [id number] 07/01/2024 Paula Todd Primary insomnia F51 .01 [facility] [address] [place] [id number] 07/16/2024 Paula Todd [facility] [address] [place] [id number] 08/24/2024 Paula Todd Screening for breast cancer Z12.39 and Screening for osteoporosis Z13.820 [facility] [address] [place], [place] [id number] 09/08/2024 Paula Todd Situational depressi on F43.21 and Depression with anxiety F41.8 Assessments Encounter Date Diagnosis (ICD Code) Assessment Notes Treatment Notes Treatment Clinical Notes Section Notes 10/30/2023 Primary insomnia (ICD-10 - F51.01) 11/28/2023 Oropharyngeal dysphagia (ICD-10 - R13.12) 11/28/2023 Thyromegaly (ICD-10 - E01.0) 12/12/2023 Thyromegaly (ICD-10 - E01.0) 12/16/2023 Oropharyngeal dysphagia (ICD-10 - R13.12) 02/20/2024 Mid back pain (ICD-10 - M54.9) 02/20/2024 Acute midline low back pain without sciatica (ICD-10 - M54.50) 03/03/2024 Primary insomnia (ICD-10 - F51.01) 03/06/2024 Type 2 diabetes mellitus without complication (ICD-10 - E11.9) 03/06/2024 Chronic constipation (ICD-10 - K59.09) Oil retention enema...leave in for 2 hrs 05/11/2024 Type 2 diabetes mellitus without complication (ICD-10 - E11.9) 05/11/2024 Situational depression (ICD-10 - F43.21) 05/27/2024 Shortness of breath (ICD-10 - R06.02) Rapid flu is negative. Her son has flu and has had RSV at his adult day center. Will get a mini respiratory panel. 05/27/2024 Recurrent headache (ICD-10 - R51.9) 06/10/2024 Essential hypertension (ICD-10 - I10) 06/10/2024 Type 2 diabetes mellitus without complication (ICD-10 - E11.9) 07/01/2024 Primary insomnia (ICD-10 - F51.01) 07/16/2024 Bronchitis (ICD-10 - J40) Patient has cough medication and an inhaler at home. 08/12/2024 Anxiety (ICD-10 - F41.9) eric 08/12/2024 Chronic depression (ICD-10 - F32.A) Will make referral to psychiatry. Will also start on a low dose of abilify. She will hold her ambien while taking the abilify. eric 08/24/2024 Screening for breast cancer (ICD-10 - Z12.39) 08/24/2024 Screening for osteoporosis (ICD-10 - Z13.820) 09/08/2024 Situational depression (ICD-10 - F43.21) 08/12/2024 Non-recurrent acute serous otitis media of left ear (ICD-10 - H65.02) Can use flonase and OTC antihistamine of choice. eric 09/08/2024 Depression with anxiety (ICD-10 - F41.8) 06/10/2024 Acquired hypothyroidism (ICD-10 - E03.9) 05/27/2024 Exposure to the flu (ICD-10 - Z20.828) 05/11/2024 Lower abdominal pain (ICD-10 - R10.30) 03/06/2024 Vitamin B12 deficiency (ICD-10 - E53.8) 02/20/2024 Depression with anxiety (ICD-10 - F41.8) 11/28/2023 Essential hypertension (ICD-10 - I10) 02/20/2024 Dysphagia, unspecified type (ICD-10 - R13.10) Will have EGD in Apr. 11/28/2023 Type 2 diabetes mellitus without complication (ICD-10 - E11.9) 05/11/2024 Tobacco abuse (ICD-10 - Z72.0) 03/06/2024 Situational depression (ICD-10 - F43.21) 05/27/2024 Elevated blood pressure reading (ICD-10 - R03.0) Will give 7 days of diltiazem while waiting on her mail order rx. Her BP is too high without it. She will check it at home after restarting the medication. 06/10/2024 Vitamin B12 deficiency (ICD-10 - E53.8) 08/12/2024 BMI 25.0-25.9,adult (ICD-10 - Z68.25) eric 06/10/2024 Depression with anxiety (ICD-10 - F41.8) 03/06/2024 Essential hypertension (ICD-10 - I10) 11/28/2023 Depression with anxiety (ICD-10 - F41.8) 03/06/2024 Tobacco abuse (ICD-10 - Z72.0) 06/10/2024 Weight loss (ICD-10 - R63.4) 06/10/2024 Gastroesophageal reflux disease, esophagitis presence not specified (ICD-10 - K21.9) 03/06/2024 Encounter for immunization (ICD-10 - Z23) 06/10/2024 Rash (ICD-10 - R21) 06/10/2024 Vitamin D deficiency (ICD-10 - E55.9) 06/10/2024 BMI 25.0-25.9,adult (ICD-10 - Z68.25) Plan Of Treatment Pending Test Test Name Order Date Bone density 08/24/2024 Mammogram 08/24/2024 Insurance Providers Payer Name Payer Address Payer Phone Subscriber Number Group Number Insured Name Patient Relationship to Insured Coverage Start Date Coverage End Date [employer] (MEDICAR E) [address] [address] [place] [phone] [id number] REJI HAWLEY Self - patient is the insured Medications Administered Medication Instructions Date of Administration Dosage Notes B-12 04/29/2017 1 mL B-12 05/09/2017 1 mL B-12 06/06/2017 1 mL Dexamethasone 11/14/2009 1 mL Methotrexate 06/14/2006 25 mg Medical (General) History Medical History History ICD Code Type 2 Diabetes Hypertension Hypothyroidism Crohn's Disease, 2006 Hyperparathyroidism Neg [facility], 12/29/2010 Surgical History Surgery Date(Month/Year) Appendectomy Cholecystectomy Total Hysterectomy Bowel Obstruction RT Knee Replacement Bilateral Breast Cyst Removal Pilonidal Cyst Removal Top Teeth Pulled 01/19/2011 Heart Cath- [facility] 2017 dermoid cyst, left arm, Dr Muller 2022 ENT evaluation, Dr. Anderson 02/25/24 Hospitalization History Reason Date(Month/Year) Cough- [facility] 01/2018 Passed Out- [facility] 12/2013 Abdominal Pains 03/2012 Crohns 11/2010 Anxiety Attack- [facility] ER 08/2009 Abdominal Pains, Diarrhea- [facility] Abdominal Pain, [place]- [facility] 09/05-10/2007 Abdominal Pain- [facility] 05/08-01/2008 Hospitalized 10/16/2005
== END 2024-09-14 23:59 | disposition home or self-care (01) ==
LOC: RAD 08:21
PROVIDERS: PCP Family Medicine; Visit Provider Family Medicine
DX: Z12.31 Encounter for screening mammogram for malignant neoplasm of breast (principal); R92.323 Mammographic fibroglandular density, bilateral breasts; M85.88 Other specified disorders of bone density and structure, other site; Z13.820 Encounter for screening for osteoporosis
CPT/HCPCS: 77063; 77067; 77080